=== PATIENT | female | born 1995 | race African-American/Black ===

== ENCOUNTER 2018-01-21 16:08 | Emergency (ER) | payer MEDICARE, OTHER ==
[~2018-01-21] VITALS: Ht 172.7 cm; Wt 68.0 kg
[~2018-01-21 16:08] MED LIST: CA C1TAB75 PO; CEFD300C3 PO; FEXO-14 PO; HYDR-1231 PO; MEDR150D8 IM; [UNRECOGNIZED DRUG - OTHER] IM
--- OUTSIDE RECORDS SUMMARY | 2018-01-21 16:14 | XMS REPORT | Continuity of Care Document ---
Author Author [facility] Organization [facility] Address Unknown Phone Unavailable Allergies Active Description Code Type Severity Reaction Onset Reported/Identified Relationship to Patient Clinical Status Yes No Known Drug Allergies [id number] Drug Allergy Unknown N/A 06/27/2014 Medications There is no data. Problems Date Dx Coded Attending Type Code Diagnosis Diagnosed By 06/27/2014 JONY LOPEZ APRN Ot 465.9 02/25/2015 AJNIS ARIAS Ot 611.71 02/25/2015 JANIS ARIAS Ot 719.46 02/25/2015 JANIS ARIAS Ot V70.3 04/29/2015 SANJUANITA SPARKS MD Ot 780.60 04/29/2015 SANJUANITA SPARKS MD Ot 784.0 Procedures There is no data. Results There is no data. Encounters ACCT No. Visit Date/Time Discharge Status Pt. Type Provider Facility Loc./Unit Complaint [id number] 04/28/2015 23:13:00 04/29/2015 00:10:00 DIS Emergency SANJUANITA SPARKS MD [facility] ER [id number] 02/25/2015 15:36:00 02/25/2015 17:52:00 DIS Emergency SANJUANITA SPARKS MD [facility] ER [id number] 06/27/2014 21:06:00 06/27/2014 22:29:00 DIS Emergency JONY LOPEZ APRN [facility] ER [id number] 06/01/2014 13:33:00 06/01/2014 23:59:59 CLS Outpatient JANIS ARIAS [facility] RAD
--- NOTE | 2018-01-21 16:27 | ED General ---
General Stated Complaint: POISON LEEROY Source of Information: Patient Exam Limitations: No Limitations History of Present Illness Date Seen by Provider: Jan 21, 2018 Time Seen by Provider: 16:22 Initial Comments Patient is deaf and presents to ER by her mother with reports of poison leeroy. This began around the first of the month and at that time she received an injection of a short-acting and long-acting steroid according to the mother. Mother reports the patient has had intense reactions to poison leeroy her whole life and she is very active outside but does not recall any exposure to poison leeroy though it would be difficult to tell this time year without leaves. Additionally, starting yesterday she developed pain in her throat, chills and body aches. The poison leeroy rash never really went away and remains itchy despite Benadryl Timing/Duration: 1-2 Days Allergies and Home Medications Allergies Coded Allergies: No Known Drug Allergies (Unverified , 06/27/14) Home Medications Medroxyprogesterone Acet 150 Mg/Ml Disp.syrin, 150 MG IM UD, (Reported) [Depoproveria] , 1 PKT IM UD, (Reported) Constitutional: see HPI, chills, other (body aches) EENTM: see HPI Respiratory: see HPI, cough Cardiovascular: no symptoms reported Genitourinary: no symptoms reported Musculoskeletal: no symptoms reported Skin: no symptoms reported Psychiatric/Neurological: No Symptoms Reported Hematologic/Lymphatic: No Symptoms Reported Past Lillpim-Znesup-Ojffes Hx Patient Social History Recent Foreign Travel: No Contact w/Someone Who Travel: No Immunizations Up To Date Date of Influenza Vaccine: Aug 31, 2014 HEENT Hearing Impairment: Deaf Physical Exam Vital Signs Capillary Refill : General Appearance: No Apparent Distress, WD/WN Eyes: Bilateral Eye Normal Inspection, Bilateral Eye PERRL, Bilateral Eye EOMI HEENT: PERRL/EOMI, TMs Normal Neck: Full Range of Motion, Normal Inspection Respiratory: No Accessory Muscle Use, No Respiratory Distress Cardiovascular: Regular Rate, Rhythm, Normal Peripheral Pulses Gastrointestinal: Normal Bowel Sounds, Non Tender, Soft Extremity: Normal Capillary Refill, Normal Inspection, No Calf Tenderness Neurologic/Psychiatric: Alert, Oriented x3 Skin: Normal Color, Warm/Dry, Other (she does have clusters of vesicles to the dorsal aspect of the hand, forearms, the lower abdomen and the thighs. Consistent with poison leeroy dermatitis. Her lungs are clear and her throat is without erythema and there is no lymphadenopathy. I suspect that her fever, body aches and cough are separate issue which would be a viral illness) Progress/Results/Core Measures Suspected Sepsis SIRS Temperature: Pulse: Respiratory Rate: Blood Pressure / Mean: Results/Orders Vital Signs/I&O Capillary Refill : Departure Impression Impression: Primary Impression: Viral illness Additional Impression: Poison leeroy Disposition: HOME, SELF-CARE Condition: Stable Departure-Patient Inst. Decision time for Depature: 16:25 Ref[place]: [facility] [place] Primary Care Physician Add. Discharge Instructions: 1. Steroids as directed 2. Tylenol and Motrin for fevers 3. Continue to use the Benadryl this will help with the itching, cough and if she develops any nasal congestion Scripts Prednisone (Prednisone) 5 Mg Tablet 5 MG PO UD Y for RASH, #36 TAB 40 mg today then reduced by one tablet daily until gone Prov: JONY LOPEZ APRN 01/21/18 JONY LOPEZ APRN Jan 21, 2018 16:27
[2018-01-21] MEDS ORDERED: PRED5TAB PO (16:28)
[2018-01-21 16:41] VITALS: BP 125/88
== END 2018-01-21 16:41 | disposition home or self-care (01) ==
LOC: EDUNIT# 16:08 → ER 16:10
DX: B34.9 Viral infection, unspecified (principal); L23.7 Allergic contact dermatitis due to plants, except food; Z79.52 Long term (current) use of systemic steroids
CPT/HCPCS: 99281

== ENCOUNTER 2018-07-09 00:58 | Emergency (ER) | payer MEDICARE ==
[~2018-07-09] VITALS: Ht 172.7 cm; Wt 68.0 kg
[~2018-07-09 00:58] MED LIST changes: +PRED5TAB PO
--- OUTSIDE RECORDS SUMMARY | 2018-07-09 01:07 | XMS REPORT | Continuity of Care Document ---
Author Author [facility] Organization [facility] Address Unknown Phone Unavailable Allergies Active Description Code Type Severity Reaction Onset Reported/Identified Relationship to Patient Clinical Status Yes No Known Drug Allergies [id number] Drug Allergy Unknown N/A 06/27/2014 Medications There is no data. Problems Date Dx Coded Attending Type Code Diagnosis Diagnosed By 06/28/2008 V20.2 ROUTINE OR CHILD HEALTH CHECK 06/28/2008 RUDI VALENTINO DO V20.2 ROUTINE INFANT OR CHILD HEALTH CHECK 06/28/2008 V20.2 ROUTINE INFANT OR CHILD HEALTH CHECK 06/28/2008 V20.2 ROUTINE INFANT OR CHILD HEALTH CHECK 06/28/2008 V20.2 ROUTINE INFANT OR CHILD HEALTH CHECK 06/28/2008 V20.2 ROUTINE OR CHILD HEALTH CHECK 06/28/2008 RUDI VALENTINO DO V20.2 ROUTINE INFANT OR CHILD HEALTH CHECK 06/28/2008 URDI VALENTINO DO V20.2 ROUTINE OR CHILD HEALTH CHECK 06/28/2008 RUDI VALENTINO DO V20.2 ROUTINE OR CHILD HEALTH CHECK 06/28/2008 JANIS ARIAS APRN V20.2 ROUTINE INFANT OR CHILD HEALTH CHECK 06/28/2008 LAUREANO CALLES APRN A V20.2 ROUTINE INFANT OR CHILD HEALTH CHECK 06/28/2008 RUDI VALENTINO DO V20.2 ROUTINE OR CHILD HEALTH CHECK 06/28/2008 RUDI VALENTINO DO V20.2 ROUTINE OR CHILD HEALTH CHECK 06/28/2008 RUDI VALENTINO DO V20.2 ROUTINE INFANT OR CHILD HEALTH CHECK 06/28/2008 LAUREANO CALLES APRN A V20.2 ROUTINE OR CHILD HEALTH CHECK 09/16/2008 V03.89 MENINGOCOCCAL , OTHER SPECIFIED SINGLE BACTERIAL DISEASE 09/16/2008 V05.8 GARDASIL, SHINGLES, OTHER SPECIFIED DISEASE 09/16/2008 RUDI VALENTINO DO V03.89 MENINGOCOCCAL, OTHER SPECIFIED SINGLE BACTERIAL DISEASE 09/16/2008 RUDI VALENTINO DO V05.8 GARDASIL, SHINGLES, OTHER SPECIFIED DISEASE 09/16/2008 V03.89 MENINGOCOCCAL , OTHER SPECIFIED SINGLE BACTERIAL DISEASE 09/16/2008 V05.8 GARDASIL, SHINGLES, OTHER SPECIFIED DISEASE 09/16/2008 V03.89 MENINGOCOCCAL , OTHER SPECIFIED SINGLE BACTERIAL DISEASE 09/16/2008 V05.8 GARDASIL, SHINGLES, OTHER SPECIFIED DISEASE 09/16/2008 V03.89 MENINGOCOCCAL , OTHER SPECIFIED SINGLE BACTERIAL DISEASE 09/16/2008 V05.8 GARDASIL, SHINGLES, OTHER SPECIFIED DISEASE 09/16/2008 V03.89 MENINGOCOCCAL , OTHER SPECIFIED SINGLE BACTERIAL DISEASE 09/16/2008 V05.8 GARDASIL, SHINGLES, OTHER SPECIFIED DISEASE 09/16/2008 RUDI VALENTINO DO V03.89 MENINGOCOCCAL, OTHER SPECIFIED SINGLE BACTERIAL DISEASE 09/16/2008 RUDI VALENTINO DO V05.8 GARDASIL, SHINGLES, OTHER SPECIFIED DISEASE 09/16/2008 RUDI VALENTINO DO V03.89 MENINGOCOCCAL, OTHER SPECIFIED SINGLE BACTERIAL DISEASE 09/16/2008 RUDI VALENTINO DO V05.8 GARDASIL, SHINGLES, OTHER SPECIFIED DISEASE 09/16/2008 RUDI VALENTINO DO K V03.89 MENINGOCOCCAL, OTHER SPECIFIED SINGLE BACTERIAL DISEASE 09/16/2008 JAN VALENTINO DOA K V05.8 GARDASIL, SHINGLES, OTHER SPECIFIED DISEASE 09/16/2008 RAJJERAMYE LITIGATION EXAMINER, JANIS A V03.89 MENINGOCOCCAL, OTHER SPECIFIED SINGLE BACTERIAL DISEASE 09/16/2008 RAJOTTE LITIGATION EXAMINER, JANIS A V05.8 GARDASIL, SHINGLES, OTHER SPECIFIED DISEASE 09/16/2008 STEVAN LITIGATION EXAMINER, LAUREANO A V03.89 MENINGOCOCCAL, OTHER SPECIFIED SINGLE BACTERIAL DISEASE 09/16/2008 STEVAN LITIGATION EXAMINER, LAUREANO A V05.8 GARDASIL, SHINGLES, OTHER SPECIFIED DISEASE 09/16/2008 JAN VALENTINO DOA K V03.89 MENINGOCOCCAL, OTHER SPECIFIED SINGLE BACTERIAL DISEASE 09/16/2008 JAN VALENTINO DOA K V05.8 GARDASIL, SHINGLES, OTHER SPECIFIED DISEASE 09/16/2008 JAN VALENTINO DOA K V03.89 MENINGOCOCCAL, OTHER SPECIFIED SINGLE BACTERIAL DISEASE 09/16/2008 RUDI VALENTINO DO K V05.8 GARDASIL, SHINGLES, OTHER SPECIFIED DISEASE 09/16/2008 RUDI VALENTINO DO K V03.89 MENINGOCOCCAL, OTHER SPECIFIED SINGLE BACTERIAL DISEASE 09/16/2008 VALENTINO DORUDI K V05.8 GARDASIL, SHINGLES, OTHER SPECIFIED DISEASE 09/16/2008 STEVAN APRN, LAUREANO A V03.89 MENINGOCOCCAL, OTHER SPECIFIED SINGLE BACTERIAL DISEASE 09/16/2008 STEVAN LITIGATION EXAMINER, LAUREANO A V05.8 GARDASIL, SHINGLES, OTHER SPECIFIED DISEASE 05/02/2009 V65.5 feared medical condition not demonstrated 05/02/2009 RUDI VALENTINO DO K V65.5 feared medical condition not demonstrated 05/02/2009 V65.5 feared medical condition not demonstrated 05/02/2009 V65.5 feared medical condition not demonstrated 05/02/2009 V65.5 feared medical condition not demonstrated 05/02/2009 V65.5 feared medical condition not demonstrated 05/02/2009 RUDI VALENTINO DO K V65.5 feared medical condition not demonstrated 05/02/2009 RUDI VALENTINO DO K V65.5 feared medical condition not demonstrated 05/02/2009 RUDI VALENTINO DO K V65.5 feared medical condition not demonstrated 05/02/2009 JAINS ARIAS APRN V65.5 feared medical condition not demonstrated 05/02/2009 LAUREANO CALLES APRN A V65.5 feared medical condition not demonstrated 05/02/2009 RUDI VALENTINO DO K V65.5 feared medical condition not demonstrated 05/02/2009 RUDI VALENTINO DO K V65.5 feared medical condition not demonstrated 05/02/2009 RUDI VALENTINO DO K V65.5 feared medical condition not demonstrated 05/02/2009 LAUREANO CALLES APRN A V65.5 feared medical condition not demonstrated 06/28/2009 389.7 DEAF MUTISM 06/28/2009 V05.3 Need For Vaccination Hepatitis A 06/28/2009 RUDI VALENTINO DO 389.7 DEAF MUTISM 06/28/2009 VALENTINO RUDI TABOR K V05.3 Need For Vaccination Hepatitis A 06/28/2009 389.7 DEAF MUTISM 06/28/2009 V05.3 Need For Vaccination Hepatitis A 06/28/2009 389.7 DEAF MUTISM 06/28/2009 V05.3 Need For Vaccination Hepatitis A 06/28/2009 389.7 DEAF MUTISM 06/28/2009 V05.3 Need For Vaccination Hepatitis A 06/28/2009 389.7 DEAF MUTISM 06/28/2009 V05.3 Need For Vaccination Hepatitis A 06/28/2009 VALENTINO DO, RUDI K 389.7 DEAF MUTISM 06/28/2009 VALENTINO DO, RUDI K V05.3 Need For Vaccination Hepatitis A 06/28/2009 VALENTINO DO, RUDI K 389.7 DEAF MUTISM 06/28/2009 VALENTINO DO, RUDI K V05.3 Need For Vaccination Hepatitis A 06/28/2009 VALENTINO DO, RUDI K 389.7 DEAF MUTISM 06/28/2009 VALENTINO DO, RUDI K V05.3 Need For Vaccination Hepatitis A 06/28/2009 RAJOTTE LITIGATION EXAMINER, JANIS A 389.7 DEAF MUTISM 06/28/2009 RAJOTTE LITIGATION EXAMINER, JANIS A V05.3 Need For Vaccination Hepatitis A 06/28/2009 STEVAN LITIGATION EXAMINER, LAUREANO A 389.7 DEAF MUTISM 06/28/2009 STEVAN LITIGATION EXAMINER, LAUREANO A V05.3 Need For Vaccination Hepatitis A 06/28/2009 VALENTINO DO, RUDI K 389.7 DEAF MUTISM 06/28/2009 VALENTINO DO, RUDI K V05.3 Need For Vaccination Hepatitis A 06/28/2009 VALENTINO DO, RUDI K 389.7 DEAF MUTISM 06/28/2009 VALENTINO DO, RUDI K V05.3 Need For Vaccination Hepatitis A 06/28/2009 VALENTINO DO, RUDI K 389.7 DEAF MUTISM 06/28/2009 VALENTINO DO, RUDI K V05.3 Need For Vaccination Hepatitis A 06/28/2009 STEVAN LITIGATION EXAMINER, LAUREANO A 389.7 DEAF MUTISM 06/28/2009 STEVAN LITIGATION EXAMINER, LAUREANO A V05.3 Need For Vaccination Hepatitis A 01/12/2010 V25.40 CONTRACEPTIVE SURVEILLANCE UNSPECIFIED 01/12/2010 CHICHO DO RUDI K V25.40 CONTRACEPTIVE SURVEILLANCE UNSPECIFIED 01/12/2010 V25.40 CONTRACEPTIVE SURVEILLANCE UNSPECIFIED 01/12/2010 V25.40 CONTRACEPTIVE SURVEILLANCE UNSPECIFIED 01/12/2010 V25.40 CONTRACEPTIVE SURVEILLANCE UNSPECIFIED 01/12/2010 V25.40 CONTRACEPTIVE SURVEILLANCE UNSPECIFIED 01/12/2010 VALENTINO DO, RUDI K V25.40 CONTRACEPTIVE SURVEILLANCE UNSPECIFIED 01/12/2010 VALENTINO DO, RUDI K V25.40 CONTRACEPTIVE SURVEILLANCE UNSPECIFIED 01/12/2010 VALENTINO DO, RUDI K V25.40 CONTRACEPTIVE SURVEILLANCE UNSPECIFIED 01/12/2010 RAJOTTE LITIGATION EXAMINER JANIS A V25.40 CONTRACEPTIVE SURVEILLANCE UNSPECIFIED 01/12/2010 STEVAN LITIGATION EXAMINER, LAUREANO A V25.40 CONTRACEPTIVE SURVEILLANCE UNSPECIFIED 01/12/2010 VALENTINO DO, RUDI K V25.40 CONTRACEPTIVE SURVEILLANCE UNSPECIFIED 01/12/2010 VALENTINO DO, RUDI K V25.40 CONTRACEPTIVE SURVEILLANCE UNSPECIFIED 01/12/2010 VALENTINO DO, RUDI K V25.40 CONTRACEPTIVE SURVEILLANCE UNSPECIFIED 01/12/2010 STEVAN LITIGATION EXAMINER, LAUREANO A V25.40 CONTRACEPTIVE SURVEILLANCE UNSPECIFIED 04/07/2010 V25.49 SURVEILLANCE OF OTHER CONTRACEPTIVE METHOD 04/07/2010 VALENTINO DO, RUDI K V25.49 SURVEILLANCE OF OTHER CONTRACEPTIVE METHOD 04/07/2010 V25.49 SURVEILLANCE OF OTHER CONTRACEPTIVE METHOD 04/07/2010 V25.49 SURVEILLANCE OF OTHER CONTRACEPTIVE METHOD 04/07/2010 V25.49 SURVEILLANCE OF OTHER CONTRACEPTIVE METHOD 04/07/2010 V25.49 SURVEILLANCE OF OTHER CONTRACEPTIVE METHOD 04/07/2010 VALENTINO DO, RUDI K V25.49 SURVEILLANCE OF OTHER CONTRACEPTIVE METHOD 04/07/2010 VALENTINO DO, RUDI K V25.49 SURVEILLANCE OF OTHER CONTRACEPTIVE METHOD 04/07/2010 VALENTINO DO, RUDI K V25.49 SURVEILLANCE OF OTHER CONTRACEPTIVE METHOD 04/07/2010 RAJOTTE LITIGATION EXAMINER JANIS A V25.49 SURVEILLANCE OF OTHER CONTRACEPTIVE METHOD 04/07/2010 STEVAN LITIGATION EXAMINER, LAUREANO A V25.49 SURVEILLANCE OF OTHER CONTRACEPTIVE METHOD 04/07/2010 VALENTINO DO, RUDI K V25.49 SURVEILLANCE OF OTHER CONTRACEPTIVE METHOD 04/07/2010 VALENTINO DO, RUDI K V25.49 SURVEILLANCE OF OTHER CONTRACEPTIVE METHOD 04/07/2010 VALENTINO DO, RUDI K V25.49 SURVEILLANCE OF OTHER CONTRACEPTIVE METHOD 04/07/2010 STEVAN LITIGATION EXAMINER, LAUREANO A V25.49 SURVEILLANCE OF OTHER CONTRACEPTIVE METHOD 06/14/2010 692.6 POISON LEEROY 06/14/2010 VALENTINO DO, RUDI K 692.6 POISON LEEROY 06/14/2010 692.6 POISON LEEROY 06/14/2010 692.6 POISON LEEROY 06/14/2010 692.6 POISON LEEROY 06/14/2010 692.6 POISON LEEROY 06/14/2010 VALENTINO DO, RUDI K 692.6 POISON LEEROY 06/14/2010 VALENTINO DO, RUDI K 692.6 POISON LEEROY 06/14/2010 VALENTINO DO, RUDI K 692.6 POISON LEEROY 06/14/2010 RAJOTTE LITIGATION EXAMINER, JANIS A 692.6 POISON LEEROY 06/14/2010 STEVAN LITIGATION EXAMINER, LAUREANO A 692.6 POISON LEEROY 06/14/2010 VALENTINO DO, RUID K 692.6 POISON LEEROY 06/14/2010 VALENTINO DO, RUDI K 692.6 POISON LEEROY 06/14/2010 VALENTINO DO, RUDI K 692.6 POISON LEEROY 06/14/2010 STEVAN LITIGATION EXAMINER, LAUREANO A 692.6 POISON LEEROY 07/02/2011 389.9 UNSPECIFIED HEARING LOSS 07/02/2011 VALENTINO DO, RUDI K 389.9 UNSPECIFIED HEARING LOSS 07/02/2011 389.9 UNSPECIFIED HEARING LOSS 07/02/2011 389.9 UNSPECIFIED HEARING LOSS 07/02/2011 389.9 UNSPECIFIED HEARING LOSS 07/02/2011 389.9 UNSPECIFIED HEARING LOSS 07/02/2011 VALENTINO DO, RUDI K 389.9 UNSPECIFIED HEARING LOSS 07/02/2011 VALENTINO DO, RUDI K 389.9 UNSPECIFIED HEARING LOSS 07/02/2011 VALENTINO DO, RUDI K 389.9 UNSPECIFIED HEARING LOSS 07/02/2011 JUANA LITIGATION EXAMINER, JANIS A 389.9 UNSPECIFIED HEARING LOSS 07/02/2011 STEVAN LITIGATION EXAMINER, LAUREANO A 389.9 UNSPECIFIED HEARING LOSS 07/02/2011 VALENTINO DO, RUDI K 389.9 UNSPECIFIED HEARING LOSS 07/02/2011 VALENTINO DO, RUDI K 389.9 UNSPECIFIED HEARING LOSS 07/02/2011 VALENTINO DO, RUDI K 389.9 UNSPECIFIED HEARING LOSS 07/02/2011 STEVAN LITIGATION EXAMINER, LAUREANO A 389.9 UNSPECIFIED HEARING LOSS 09/13/2011 V72.41 TEST NEGATIVE RESULT 09/13/2011 VALENTINO DO, RUDI K V72.41 TEST NEGATIVE RESULT 09/13/2011 V72.41 TEST NEGATIVE RESULT 09/13/2011 V72.41 TEST NEGATIVE RESULT 09/13/2011 V72.41 TEST NEGATIVE RESULT 09/13/2011 V72.41 TEST NEGATIVE RESULT 09/13/2011 VALENTINO DO, RUDI K V72.41 TEST NEGATIVE RESULT 09/13/2011 VALENTINO DO, RUDI K V72.41 TEST NEGATIVE RESULT 09/13/2011 VALENTINO DO, RUDI K V72.41 TEST NEGATIVE RESULT 09/13/2011 ESTHERE LITIGATION EXAMINER, JANIS A V72.41 TEST NEGATIVE RESULT 09/13/2011 STEVANSpike FISH LAUREANO A V72.41 TEST NEGATIVE RESULT 09/13/2011 VALENTINO DO, RUDI K V72.41 TEST NEGATIVE RESULT 09/13/2011 VALENTINO DO, RUDI K V72.41 TEST NEGATIVE RESULT 09/13/2011 VALENTINO DO, RUDI K V72.41 TEST NEGATIVE RESULT 09/13/2011 STEVAN FISH, LAUREANO A V72.41 TEST NEGATIVE RESULT 11/20/2011 110.4 TINEA PEDIS 11/20/2011 VALENTINO DO, RUDI K 110.4 TINEA PEDIS 11/20/2011 110.4 TINEA PEDIS 11/20/2011 110.4 TINEA PEDIS 11/20/2011 110.4 TINEA PEDIS 11/20/2011 110.4 TINEA PEDIS 11/20/2011 VALENTINO DO, RUDI K 110.4 TINEA PEDIS 11/20/2011 VALENTINO DO, RUDI K 110.4 TINEA PEDIS 11/20/2011 VALENTINO DO, RUDI K 110.4 TINEA PEDIS 11/20/2011 LEANNOTTE LITIGATION EXAMINER, JANIS A 110.4 TINEA PEDIS 11/20/2011 STEVAN LITIGATION EXAMINER, LAUREANO A 110.4 TINEA PEDIS 11/20/2011 VALENTINO DO, RUDI K 110.4 TINEA PEDIS 11/20/2011 VALENTINO DO, RUDI K 110.4 TINEA PEDIS 11/20/2011 VALENTINO DO, RUDI K 110.4 TINEA PEDIS 11/20/2011 STEVAN FISH LAUREANO A 110.4 TINEA PEDIS 05/07/2012 V25.9 CONTRACEPTION MANAGEMENT 05/07/2012 VALENTINO DO, RUDI K V25.9 CONTRACEPTION MANAGEMENT 05/07/2012 V25.9 CONTRACEPTION MANAGEMENT 05/07/2012 V25.9 CONTRACEPTION MANAGEMENT 05/07/2012 V25.9 CONTRACEPTION MANAGEMENT 05/07/2012 V25.9 CONTRACEPTION MANAGEMENT 05/07/2012 VALENTINO DOJANA K V25.9 CONTRACEPTION MANAGEMENT 05/07/2012 VALENTINO DO, RUDI K V25.9 CONTRACEPTION MANAGEMENT 05/07/2012 VALENTINO DO, RUDI K V25.9 CONTRACEPTION MANAGEMENT 05/07/2012 JANIS ARIAS APRN A V25.9 CONTRACEPTION MANAGEMENT 05/07/2012 BRIDGER CALLES APRNIDI A V25.9 CONTRACEPTION MANAGEMENT 05/07/2012 VALENTINO DOJANA K V25.9 CONTRACEPTION MANAGEMENT 05/07/2012 VALENTINO DO, RUDI K V25.9 CONTRACEPTION MANAGEMENT 05/07/2012 VALENTINO DOJANA K V25.9 CONTRACEPTION MANAGEMENT 05/07/2012 BRIDGER CALLES APRNIDI A V25.9 CONTRACEPTION MANAGEMENT 12/03/2012 VALENTINO DOJANA K V25.09 CONTRACEPTIVE COUNSELING - GENERAL 12/03/2012 V25.09 CONTRACEPTIVE COUNSELING - GENERAL 12/03/2012 V25.09 CONTRACEPTIVE COUNSELING - GENERAL 12/03/2012 V25.09 CONTRACEPTIVE COUNSELING - GENERAL 12/03/2012 V25.09 CONTRACEPTIVE COUNSELING - GENERAL 12/03/2012 VALENTINO DOJANA K V25.09 CONTRACEPTIVE COUNSELING - GENERAL 12/03/2012 VALENTINO DOJANA K V25.09 CONTRACEPTIVE COUNSELING - GENERAL 12/03/2012 VALENTINO DOJANA K V25.09 CONTRACEPTIVE COUNSELING - GENERAL 12/03/2012 JANIS ARIAS APRN A V25.09 CONTRACEPTIVE COUNSELING - GENERAL 12/03/2012 BRIDGER CALLES APRNIDI A V25.09 CONTRACEPTIVE COUNSELING - GENERAL 12/03/2012 VALENTINO DOJANA K V25.09 CONTRACEPTIVE COUNSELING - GENERAL 12/03/2012 VALENTINO DO RUDI K V25.09 CONTRACEPTIVE COUNSELING - GENERAL 12/03/2012 VALENTION DO RUDI K V25.09 CONTRACEPTIVE COUNSELING - GENERAL 12/03/2012 BRIDGER CALLES APRNIDI A V25.09 CONTRACEPTIVE COUNSELING - GENERAL 06/15/2013 719.46 PAIN IN JOINT INVOLVING LOWER LEG 06/15/2013 719.46 PAIN IN JOINT INVOLVING LOWER LEG 06/15/2013 VALENTINO DO, RUDI K 719.46 PAIN IN JOINT INVOLVING LOWER LEG 06/15/2013 VALENTINO DO, RUDI K 719.46 PAIN IN JOINT INVOLVING LOWER LEG 06/15/2013 VALENTINO DO, RUDI K 719.46 PAIN IN JOINT INVOLVING LOWER LEG 06/15/2013 KIZZY ARIAS APRNYL A 719.46 PAIN IN JOINT INVOLVING LOWER LEG 06/15/2013 STEVAN FISH LAUREANO A 719.46 PAIN IN JOINT INVOLVING LOWER LEG 06/15/2013 VALENTINO DO, RUDI K 719.46 PAIN IN JOINT INVOLVING LOWER LEG 06/15/2013 VALENTINO DO, RUDI K 719.46 PAIN IN JOINT INVOLVING LOWER LEG 06/15/2013 VALENTINO DO, RUDI K 719.46 PAIN IN JOINT INVOLVING LOWER LEG 06/15/2013 LAUREANO CALLES APRN A 719.46 PAIN IN JOINT INVOLVING LOWER LEG 06/24/2013 717.7 CHONDROMALACIA OF PATELLA 06/24/2013 VALENTINO DO, RUDI K 717.7 CHONDROMALACIA OF [place]LLA 06/24/2013 VALENTINO DO, RUDI K 717.7 CHONDROMALACIA OF [place]LL[place] 06/24/2013 VALENTINO DO, RUDI K 717.7 CHONDROMALACIA OF [place] 06/24/2013 KIZZY ARIAS APRNYL A 717.7 CHONDROMALACIA OF [place] 06/24/2013 STEVANBRIDGER EDUARDO APRNIDI A 717.7 CHONDROMALACIA OF [place] 06/24/2013 VALENTINO DO, RUDI K 717.7 CHONDROMALACIA OF [place] 06/24/2013 VALENTINO DO, RUDI K 717.7 CHONDROMALACIA OF [place] 06/24/2013 VALENTINO DO, RUDI K 717.7 CHONDROMALACIA OF [place] 06/24/2013 STEVANALESHA JOHNN, LAUREANO A 717.7 CHONDROMALACIA OF [place]LL[place] 10/01/2013 VALENTINO DO, RUDI K V04.81 FLU SHOT 10/01/2013 VALENTINO DO, RUDI K V04.81 FLU SHOT 10/01/2013 VALENTINO DO, RUDI K V04.81 FLU SHOT 10/01/2013 JANIS ARIAS APRN A V04.81 FLU SHOT 10/01/2013 STEVAN FISH LAUREANO A V04.81 FLU SHOT 10/01/2013 VALENTINO DO, RUDI K V04.81 FLU SHOT 10/01/2013 VALENTINO DO, RUDI K V04.81 FLU SHOT 10/01/2013 VALENTINO DO, RUDI K V04.81 FLU SHOT 10/01/2013 STEVAN FISH, LAUREANO A V04.81 FLU SHOT 04/26/2014 JUANA LITIGATION EXAMINER, JANIS A 611.71 BREAST PAIN 04/26/2014 JUANA FISH, JANIS A V70.3 SPORTS PHYSICAL 04/26/2014 STEVAN LITIGATION EXAMINER, LAUREANO A 611.71 BREAST PAIN 04/26/2014 STEVAN LITIGATION EXAMINER, LAUREANO A V70.3 SPORTS PHYSICAL 04/26/2014 VALENTINO DO, RUDI K 611.71 BREAST PAIN 04/26/2014 VALENTINO DO, RUDI K V70.3 SPORTS PHYSICAL 04/26/2014 VALENTINO DO, RUDI K 611.71 BREAST PAIN 04/26/2014 VALENTINO DO, RUDI K V70.3 SPORTS PHYSICAL 04/26/2014 VALENTINO DO, RUDI K 611.71 BREAST PAIN 04/26/2014 VALENTINO DO, RUDI K V70.3 SPORTS PHYSICAL 04/26/2014 STEVAN LITIGATION EXAMINER, LAUREANO A 611.71 BREAST PAIN 04/26/2014 STEVANALESHA JOHNN, LAUREANO A V70.3 SPORTS PHYSICAL 06/27/2014 JONY LOPEZ LITIGATION EXAMINER Ot 465.9 ACUTE URI NOS 02/25/2015 CLARE HOLDEN, SANJUANITA Allen Ot 922.8 MULTIPLE CONTUSION TRUNK 02/25/2015 SANJUANITA SPARKS MD Ot 959.19 OTH INJURY OF OTHER SITES OF TRUNK 02/25/2015 SANJUANITA SPARKS MD Ot E000.8 OTHER EXTERNAL CAUSE STATUS 02/25/2015 SANJUANITA PSARKS MD Ot E006.1 ACTIVITIES INVOLVING HORSEBACK RIDING 02/25/2015 SANJUANITA SPARKS MD Ot 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 02/25/2015 JANIS ARIAS GSE MECHANIC Ot 611.71 02/25/2015 JANIS ARIAS GSE MECHANIC Ot 719.46 02/25/2015 JANIS ARIAS GSE MECHANIC Ot V70.3 04/29/2015 CLARE HOLDEN, SANJUANITA Allen Ot 780.60 FEVER, UNSPECIFIED 04/29/2015 CLARE HOLDEN, SANJUANITA Allen Ot 784.0 HEADACHE 01/21/2018 JONY LOPEZ APRN Ot B34.9 VIRAL INFECTION, UNSPECIFIED 01/21/2018 JONY LOPEZ APRN Ot L23.7 ALLERGIC CONTACT DERMATITIS DUE TO PLANT 01/21/2018 JONY LOPEZ APRN Ot Z79.52 FCI (CURRENT) USE OF SYSTEMIC STER 01/22/2018 JUANAJANIS Rema GSE MECHANIC Ot 611.71 MASTODYNIA 01/22/2018 JANIS ARIAS GSE MECHANIC Ot 719.46 JOINT PAIN-L/LEG 01/22/2018 JANIS ARIAS GSE MECHANIC Ot V70.3 MED EXAM NEC-ADMIN PURP 01/23/2018 JONY LOPEZ APRN Ot B34.9 VIRAL INFECTION, UNSPECIFIED 01/23/2018 JONY LOPEZ APRN Ot L23.7 ALLERGIC CONTACT DERMATITIS DUE TO PLANT 01/23/2018 JONY LOPEZ APRN Ot Z79.52 [facility]CI (CURRENT) USE OF SYSTEMIC STER Procedures Code Description [place] [address] THERAPUTIC INJ SQ/IM 10/31/2012 J1055 DEPO-PROVERA INJ 150 MG 10/31/2012 57015 THERAPUTIC INJ SQ/IM 10/31/2012 J1055 DEPO-PROVERA INJ 150 MG 10/31/2012 87220 URINE TEST (IN- HOUSE) 10/31/2012 78400 URINE TEST (IN- HOUSE) 10/31/2012 09255 THERAPUTIC INJ SQ/IM 01/23/2013 J1055 DEPO-PROVERA INJ 150 MG 01/23/2013 91226 THERAPUTIC INJ SQ/IM 01/23/2013 J1055 DEPO-PROVERA INJ 150 MG 01/23/2013 08720 URINE TEST (IN- HOUSE) 01/23/2013 22998 URINE TEST (IN- HOUSE) 01/23/2013 89666 THERAPUTIC INJ SQ/IM 04/10/2013 J1050 DEPO PROVERA 04/10/2013 36143 URINE TEST (IN- HOUSE) 04/10/2013 67243 PURE TONE HEARING TEST AIR 06/17/2013 Orthopedi Sg [place] 07/08/2013 49540 URINE TEST (IN- HOUSE) 10/01/2013 86974 THERAPUTIC INJ SQ/IM 10/01/2013 J1050 DEPO PROVERA 10/01/2013 J1050 DEPO PROVERA 01/22/2014 70753 TEST, URINE (IN- HOUSE) 01/22/2014 18773 THERAPUTIC INJ SQ/IM 01/22/2014 70226 THERAPUTIC INJ SQ/IM 04/21/2014 J1050 DEPO PROVERA 04/21/2014 02185 TEST, URINE (IN- HOUSE) 04/21/2014 25882 MRI EXTREMITY JOINT, LOWER RIGHT, W/O CONTRAST 04/21/2014 J1050 DEPO PROVERA 07/07/2014 31924 THERAPUTIC INJ SQ/IM 07/07/2014 47947 TEST, URINE (IN- HOUSE) 07/07/2014 J1050 DEPO PROVERA 10/07/2014 57962 TEST, URINE (IN- HOUSE) 10/07/2014 52918 THERAPUTIC INJ SQ/IM 10/07/2014 Results Test Result Range CULTURE, GENITAL - 12/29/17 13:50 CULTURE, GENITAL SEE NOTE NRG SUREPATH PAP RFX HPV mRNA E6/E7 - 12/29/17 13:50 CLINICAL INFORMATION: NRG LMP: 12/05/17 NRG PREV. PAP: NONE NRG PREV. BX: NONE NRG SOURCE: NRG STATEMENT OF ADEQUACY: NRG INTERPRETATION/RESULT: NRG FLEA MARKET SELLER: NRG Encounters ACCT No. Visit Date/Time Discharge Status Pt. Type Provider Facility Loc./Unit Complaint [id number] 01/21/2018 16:10:00 01/21/2018 16:41:00 DIS Emergency JONY LOPEZ APRN [facility] ER POISON LEEROY [id number] 04/28/2015 23:13:00 04/29/2015 00:10:00 DIS Emergency SANJUANITA SPARKS MD [facility] ER FEVER [id number] 02/25/2015 15:36:00 02/25/2015 17:52:00 DIS Emergency SANJUANITA SPARKS MD [facility] ER FALL [id number] 06/27/2014 21:06:00 06/27/2014 22:29:00 DIS Emergency LOPEZJONY APRN [facility] ER FEVER; COUGH [id number] 06/01/2014 13:33:00 06/01/2014 23:59:59 CLS Outpatient JANIS ARIAS [facility] RAD KNEE PAIN,INJURY FROM FALL [id number] 05/26/2018 08:30:00 05/26/2018 23:59:59 CLS Outpatient MATTIE GONZALEZ [facility] [id number] 12/29/2017 12:00:00 Document Registration [id number] 11/07/2017 08:00:00 11/07/2017 23:59:59 CLS Outpatient MATTIE LAC [facility] D[facility] [id number] 02/16/2015 09:45:00 02/16/2015 23:59:59 CLS Outpatient LAUREANO CALLES APRN [id number] 10/07/2014 11:03:00 10/07/2014 23:59:59 CLS Outpatient RUDI VALENTNIO DO [id number] 07/14/2014 00:00:00 07/14/2014 23:59:59 CLS Outpatient RUDI VALENTINO DO [id number] 07/07/2014 13:54:00 07/07/2014 23:59:59 CLS Outpatient RUDI VALENTINO DO [id number] 04/26/2014 10:30:00 04/26/2014 23:59:59 CLS Outpatient JANIS ARIAS APRN [id number] 04/21/2014 15:54:00 04/21/2014 23:59:59 CLS Outpatient LAUREANO CALLES APRN [id number] 01/22/2014 10:45:00 01/22/2014 23:59:59 CLS Outpatient RUDI VALENTINO DO [id number] 01/22/2014 10:45:00 01/22/2014 23:59:59 CLS Outpatient RUDI VALENTINO DO [id number] 10/01/2013 09:45:00 10/01/2013 23:59:59 CLS Outpatient RUDI VALENTINO DO [id number] 01/23/2013 09:50:00 01/23/2013 23:59:59 CLS Outpatient [id number] 12/03/2012 13:59:00 12/03/2012 23:59:59 [place] [id number] 10/31/2012 09:58:00 10/31/2012 23:59:59 CLS Outpatient [id number] 06/29/2013 12:05:00 Document Registration [id number] 06/15/2013 14:16:00 Document Registration [id number] 04/10/2013 09:40:00 Document Registration
[2018-07-09] MEDS ORDERED: ACETAMINOPHEN 500 MG TAB (TYLENOL) PO ONE (01:15)
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
[2018-07-09 02:15] VITALS: BP 138/69
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
== END 2018-07-09 02:15 | disposition home or self-care (01) ==
LOC: EDUNIT# 00:58 → ER 01:03
DX: S00.03XA Contusion of scalp, initial encounter (principal); R40.2142 Coma scale, eyes open, spontaneous, at arrival to emergency department; R40.2252 Coma scale, best verbal response, oriented, at arrival to emergency department; R40.2362 Coma scale, best motor response, obeys commands, at arrival to emergency department; Z79.52 Long term (current) use of systemic steroids; Y04.8XXA Assault by other bodily force, initial encounter
CPT/HCPCS: 73130; 84703

== ENCOUNTER 2020-06-03 22:26 | Emergency (ER) | payer MEDICARE ==
[~2020-06-03] VITALS: Ht 172 cm; Wt 61.2 kg
[2020-06-03 22:28] VITALS: BP 135/85
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
== END 2020-06-03 23:25 | disposition home or self-care (01) ==
LOC: EDUNIT# 22:26 → ER 22:31
DX: S80.02XA Contusion of left knee, initial encounter (principal); M54.2 Cervicalgia; H91.90 Unspecified hearing loss, unspecified ear; Z87.820 Personal history of traumatic brain injury; Z79.52 Long term (current) use of systemic steroids; Z77.22 Contact with and (suspected) exposure to environmental tobacco smoke (acute) (chronic); Y08.89XA Assault by other specified means, initial encounter
CPT/HCPCS: 73562

== ENCOUNTER 2021-02-19 19:54 | Emergency (ER) | payer MEDICARE, MEDICAID ==
[~2021-02-19] VITALS: Ht 165.5 cm; Wt 61.2 kg
[2021-02-19 20:02] VITALS: BP 151/103
[2021-02-19] MEDS ORDERED: AZIT250T12 PO (20:14)
[2021-02-19] MEDS ORDERED: PRD20T PO (20:14)
--- NOTE | 2021-02-19 20:14 | ED EENT ---
History of Present Illness General Stated Complaint: BILAT EAR PAIN / JAW PAIN Source: patient Exam Limitations: no limitations History of Present Illness Date Seen by Provider: Feb 19, 2021 Time Seen by Provider: 20:09 Initial Comments Rhinorrhea, bilateral lateral neck and jaw and ear pain for 2 days. Timing/Duration: abrupt Severity: moderate Associated Symptoms: cough Allergies and Home Medications Allergies Coded Allergies: No Known Drug Allergies (Unverified , 06/27/14) Home Medications Medroxyprogesterone Acet 150 Mg/Ml Disp.syrin, 150 MG IM UD, (Reported) Prednisone 5 Mg Tablet, 5 MG PO UD PRN for RASH 40 mg today then reduced by one tablet daily until gone Prescribed by: JONY LOPEZ on 01/21/18 1628 [Depoproveria] , 1 PKT IM UD, (Reported) Patient Home Medication List Home Medication List Reviewed: Yes Review of Systems Review of Systems Constitutional: see HPI Eyes: No Symptoms Reported Ears: See HPI, Pain Nose: no symptoms reported Mouth: no symptoms reported Throat: no symptoms reported Respiratory: no symptoms reported Cardiovascular: no symptoms reported Musculoskeletal: no symptoms reported Skin: no symptoms reported Neurological: No Symptoms Reported Hematologic/Lymphatic: No Symptoms Reported Past Enlsrlh-Xwgjsn-Aoawhb Hx Patient Social History Type Used: Cigarettes 2nd Hand Smoke Exposure: Yes Recent Hopitalizations: No Immunizations Up To Date Date of Influenza Vaccine: Aug 31, 2014 Past Medical History Surgeries: No Respiratory: No Cardiac: No Neurological: No Genitourinary: No Gastrointestinal: No Musculoskeletal: No Endocrine: No HEENT: No Hearing Impairment: Deaf Cancer: No Psychosocial: No Integumentary: No Blood Disorders: No Physical Exam Height, Weight, BMI Height: 5'8.00" Weight: 150lbs. oz. 68.560044rc; 20.00 BMI Method:Stated General Appearance: WD/WN, no apparent distress Eyes: bilateral eye normal inspection, bilateral eye PERRL, bilateral eye EOMI Ears: right ear TM dull; left ear TM normal; bilateral ear auricle normal, bilateral ear canal normal Neck: non-tender, full range of motion, lymphadenopathy (R), lymphadenopathy (L) Gastrointestinal: normal bowel sounds, soft Neurologic/Psychiatric: alert, normal mood/affect, oriented x 3 Skin: normal color, warm/dry Departure Impression Primary Impression: URI (upper respiratory infection) Disposition: 01 HOME, SELF-CARE Condition: Stable Departure-Patient Inst. Decision time for Depature: 20:12 Referrals: [facility] (PCP/Family) Primary Care Physician Patient Instructions: Upper Respiratory Infection ED Add. Discharge Instructions: 1. Tylenol and ibuprofen for pain control. Medication as directed. Scripts Azithromycin (Azithromycin) 250 Mg Tablet 250 MG PO DAILY, #4 TAB 0 Refills Prov: JONY LOPEZ APRN 02/19/21 Prednisone (Prednisone) 20 Mg Tab 40 MG PO DAILY, #2 TAB 0 Refills Prov: JONY LOPEZ APRN 02/19/21 JONY LOPEZ APRN Feb 19, 2021 20:14
[2021-02-19] MEDS ORDERED: AZITHROMYCIN 250 MG TAB (ZITHROMAX) PO SCH (20:15)
[2021-02-19] MEDS ORDERED: IBUPROFEN 800 MG (MOTRIN) TAB PO ONE (20:15)
== END 2021-02-19 20:27 | disposition home or self-care (01) ==
LOC: EDUNIT# 19:54 → ER 19:57
DX: J06.9 Acute upper respiratory infection, unspecified (principal); Z77.22 Contact with and (suspected) exposure to environmental tobacco smoke (acute) (chronic); Z79.52 Long term (current) use of systemic steroids
CPT/HCPCS: 99283

== ENCOUNTER 2021-07-11 00:19 | Emergency (ER) | payer MEDICARE, MEDICAID ==
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
[2021-07-11] MEDS ORDERED: LIDOCAINE 1% INJ 20 ML 20 ML VIAL INJ ONE (01:00)
[2021-07-11] MEDS ORDERED: IBUPROFEN 600 MG (MOTRIN) TAB PO ONE (01:00)
[2021-07-11] MEDS ORDERED: metroNIDAZOLE 500 MG (FLAGYL) TAB PO ONE (01:00)
[2021-07-11] MEDS ORDERED: AZITHROMYCIN 250 MG TAB (ZITHROMAX) PO SCH (01:00)
[2021-07-11] MEDS ORDERED: cefTRIAXone 250 MG/2.5 ML ML IM ONE (01:00)
[2021-07-11] MEDS: ONDANSETRON 4 MG (ZOFRAN) ORAL DISSOLVE TAB PO STA ×2 (01:05→01:34)
[2021-07-11] MEDS ORDERED: PROMETHAZINE INJ 25 MG/ML (PHENERGAN) AMP IM ONE (01:45)
[2021-07-11 02:47] VITALS: BP 135/85
== END 2021-07-11 02:50 | disposition home or self-care (01) ==
LOC: EDUNIT# 00:19 → ER 00:22
DX: T74.21XA Adult sexual abuse, confirmed, initial encounter (principal); S80.11XA Contusion of right lower leg, initial encounter; S80.12XA Contusion of left lower leg, initial encounter; H91.90 Unspecified hearing loss, unspecified ear; Y07.9 Unspecified perpetrator of maltreatment and neglect
CPT/HCPCS: 99284

== ENCOUNTER → 2021-07-11 | Outpatient (CLI) | payer SELFPAY ==
[~2021-07-11] MED LIST changes: +AZIT250T12 PO; +PRD20T PO
== END ==
LOC: FNS 15:16
PROVIDERS: ATTEND Emergency Medicine
DX: Z02.89 Encounter for other administrative examinations (principal)

== ENCOUNTER 2022-06-02 19:45 | Emergency (ER) | payer MEDICARE ==
[~2022-06-02] VITALS: Ht 170 cm; Wt 65.7 kg
--- NOTE | 2022-06-02 20:13 | ED Upper Extremity ---
General Stated Complaint: L ARM PAIN Source: patient Exam Limitations: no limitations, physical impairment History of Present Illness Date Seen by Provider: Jun 02, 2022 Time Seen by Provider: 20:11 Initial Comments Patient is a 26-year-old female who presents ED with left wrist pain. Physical impairment limiting exam and history. Patient able to write on a piece of paper to communicate. She states that she fell today landing on her left wrist. She reports pain and swelling to the wrist with pain with movement. Denies taking thing for pain. On exam no obvious bone deformity. Patient has appropriate ra nge of motion Allergies and Home Medications Allergies Coded Allergies: No Known Drug Allergies (Unverified , 06/27/14) Patient Home Medication List Home Medication List Reviewed: Yes Azithromycin (Azithromycin) 250 Mg Tablet, 250 MG PO DAILY Prescribed by: JONY LOPEZ on 02/19/212013 Ibuprofen (Ibuprofen) 600 Mg Tablet, 600 MG PO Q6H Prescribed by: KISHA WALTON on 06/02/222041 Medroxyprogesterone Acet (Depo-Provera) 150 Mg/Ml Disp.syrin, 150 MG IM UD, (Reported) Entered as Reported by: FIFI HORN on 04/28/15 2313 Prednisone (Prednisone) 5 Mg Tablet, 5 MG PO UD PRN for RASH Prescribed by: JONY LOPEZ on 01/21/18 1628 Prednisone (Prednisone) 20 Mg Tab, 40 MG PO DAILY Prescribed by: JONY LOPEZ on 02/19/212013 [Depoproveria] , 1 PKT IM UD, (Reported) Entered as Reported by: LADONNA NAVARRO on 06/27/142131 Review of Systems Constitutional: No chills, No diaphoresis, No malaise EENTM: No ear pain, No blurred vision, No double vision Respiratory: No cough, No dyspnea on exertion Cardiovascular: No chest pain, No palpitations Gastrointestinal: No abdominal pain, No diarrhea, No nausea, No vomiting Musculoskeletal: joint pain, muscle pain Skin: No change in color, No change in hair/nails All Other Systems Reviewed Negative Unless Noted: Yes Past Oozfmvv-Nwqhhj-Vctudt Hx Past Medical History Surgeries: No Respiratory: No Cardiac: No Neurological: No Genitourinary: No Gastrointestinal: No Musculoskeletal: No Endocrine: No HEENT: No Hearing Impairment: Deaf Cancer: No Psychosocial: No Integumentary: No Blood Disorders: No Physical Exam Vital Signs Vital Signs - First Documented 06/02/22 20:05 Temp 36.6 Pulse 93 Resp 16 B/P (MAP) 111/70 (84) Pulse Ox 99 O2 Delivery Room Air Capillary Refill : Height, Weight, BMI Height: 5'8.00" Weight: 150lbs. oz. 68.684014ks; 22.00 BMI Method:Stated General Appearance: WD/WN, no apparent distress HEENT: PERRL/EOMI, normal ENT inspection, TMs normal, pharynx normal Neck: non-tender, full range of motion, supple, normal inspection Cardiovascular: regular rate, rhythm, no edema, no gallop, no JVD Respiratory: chest non-tender, lungs clear, normal breath sounds, no respiratory distress, no accessory muscle use Gastrointestinal: normal bowel sounds, non tender, soft, no organomegaly Back: normal inspection, no CVA tenderness, no vertebral tenderness Elbow/Forearm: normal ROM Wrist: Yes normal ROM, Yes pain, Yes soft tissue tenderness (Left distal radius and ulna.) Hand: normal inspection, non-tender, no evidence of injury Neurologic/Psychiatric: life science taxonomist II-XII nml as tested, no motor/sensory deficits, alert, normal mood/affect, oriented x 3 Progress/Results/Core Measures Results/Orders My Orders Orders - ERIC CHRISTIAN Wrist, Left, 3 Views Or More (06/02/22 20:10) Ibuprofen Tablet (Motrin Tablet) (06/02/22 20:15) Medications Given in ED Current Medications Medications Dose Ordered Sig/Hetal Route Start Time Stop Time Status Last Admin Dose Admin Ibuprofen 600 mg ONCE ONCE PO 06/02/22 20:15 06/02/22 20:16 DC 06/02/22 20:19 600 MG Vital Signs/I&O 06/02/22 06/02/22 20:05 21:00 Temp 36.6 36.2 Pulse 93 89 Resp 16 16 B/P (MAP) 111/70 (84) 105/69 Pulse Ox 99 100 O2 Delivery Room Air Room Air Departure Communication (PCP) X-ray was negative for fracture. Patient was placed in a Velcro splint. Orthopedic follow-up in 7 to 10 days. Will discharge with anti-inflammatories. Ice 3-4 times a day. Return precaution were discussed with Impression Primary Impression: Wrist sprain Disposition: HOME, SELF-CARE Condition: Stable Departure-Patient Inst. Decision time for Depature: 20:42 [facility]errals: [facility] (PCP/Family) Primary Care Physician MARTINE RUIZ MD Patient Instructions: Wrist Sprain ED Scripts Ibuprofen (Ibuprofen) 600 Mg Tablet 600 MG PO Q6H for PAIN, #12 TAB 0 Refills Prov: ERIC CHRISTIAN 06/02/22 ERIC CHRISTIAN Jun 02, 2022 20:13
[2022-06-02] MEDS ORDERED: IBUPROFEN 600 MG (MOTRIN) TAB PO ONE (20:15)
--- NOTE | 2022-06-02 20:36 | Diagnostic Imaging Report ---
INDICATION: Pain. COMPARISON: None available. TECHNIQUE: Three radiographs of the left wrist dated June 02, 2022. FINDINGS: No acute fracture or dislocation. No destructive osseous process. Carpal alignment is well maintained. No suspicious radiopaque foreign body. IMPRESSION: No acute osseous abnormality. Dictated by: Dictated on workstation # [id number]
[2022-06-02] MEDS ORDERED: IBUP-1773 PO (20:42)
[2022-06-02 21:00] VITALS: BP 105/69
== END 2022-06-02 21:02 | disposition home or self-care (01) ==
LOC: EDUNIT# 19:45 → ER 19:47
DX: S63.502A Unspecified sprain of left wrist, initial encounter (principal); W18.30XA Fall on same level, unspecified, initial encounter
CPT/HCPCS: 73110

== ENCOUNTER 2023-01-25 06:42 | Inpatient (IN) | payer MEDICARE ==
[2023-01-25] VITALS (25 sets, daily range): BP systolic 110–149; BP diastolic 56–86
[~2023-01-25] VITALS: Ht 172.2 cm; Wt 79.0 kg
[~2023-01-25 06:42] MED LIST changes: +IBUP-1773 PO
[2023-01-25] MEDS ORDERED: AMPICILLIN FOR IV USE 2,000 MG in NS (IVPB) 50 ML IV SCH (11:06)
[2023-01-25] MEDS ORDERED: MINERAL OIL 30 ML UDC TOP PRN (11:15)
[2023-01-25 11:33] LABS: BASOPHILS % (AUTO) 0 % (0-10); EOSINOPHILS # (AUTO) 0.4 10^3/uL (0.0-0.3); EOSINOPHILS % (AUTO) 3 % (0-10); HEMATOCRIT 42 % (35-52); HEMOGLOBIN 14.8 g/dL (11.5-16.0); LYMPHOCYTES # (AUTO) 3.2 10^3/uL (1.0-4.0); LYMPHOCYTES % (AUTO) 27 % (12-44); MEAN CORPUSCULAR HEMOGLOBIN 31 pg (25-34); MEAN CORPUSCULAR HGB CONC 35 g/dL (32-36); MEAN CORPUSCULAR VOLUME 90 fL (80-99); MEAN PLATELET VOLUME 9.9 fL (9.0-12.2); MONOCYTES # (AUTO) 0.5 10^3/uL (0.0-1.0); MONOCYTES % (AUTO) 4 % (0-12); NEUTROPHILS # (AUTO) 7.8 10^3/uL (1.8-7.8); NEUTROPHILS % (AUTO) 65 % (42-75); PLATELET COUNT 279 10^3/uL (130-400)
[2023-01-25 11:42] LABS: BILIRUBIN,URINE NEGATIVE (NEGATIVE); CLARITY,URINE CLEAR; COLOR,URINE YELLOW; GLUCOSE, URINE (UA) NEGATIVE (NEGATIVE); KETONES,URINE NEGATIVE (NEGATIVE); LEUKOCYTE ESTERASE ,URINE NEGATIVE (NEGATIVE); NITRITE,URINE NEGATIVE (NEGATIVE); PROTEIN,URINE NEGATIVE (NEGATIVE)
[2023-01-25] MEDS: D5 LR IV SOLUTION 1,000 ML IV SCH ×2 (11:47→19:35)
[2023-01-25 11:50] LABS: BACTERIA,URINE FEW /HPF
[2023-01-25] MEDS ORDERED: PREN-37 PO (11:50)
[2023-01-25 11:56] LABS: AMPHETAMINE SCREEN, URINE NEGATIVE (NEGATIVE); BARBITURATE SCREEN URINE NEGATIVE (NEGATIVE); BENZODIAZEPINES SCREEN URINE NEGATIVE (NEGATIVE); CANNABINOID SCREEN, URINE NEGATIVE (NEGATIVE); COCAINE SCREEN URINE NEGATIVE (NEGATIVE); OPIATE SCREEN URINE NEGATIVE (NEGATIVE)
[2023-01-25 11:57] LABS: METHADONE STAT NEGATIVE (NEGATIVE); OXYCODONE STAT NEGATIVE (NEGATIVE); PROPOXYPHENE STAT NEGATIVE (NEGATIVE); TRICYCLIC ANTIDEPRESSANTS SCRE NEGATIVE (NEGATIVE)
--- NOTE | 2023-01-25 12:21 | History & Physical-OB/GYN ---
SANDOR WATTS 01/25/23 1221: OB - Chief Complaint & HPI Date/Time Date of Admission: Date of Admission: Jan 25, 2023 at 11:10 Date seen by a Provider: Jan 25, 2023 Time Seen by a Provider: 10:30 Chief Complaint/History OB-Reason for Admission/Chief: Onset of Labor Hx : 1 Hx Para: 0 Expected Date of Delivery: Feb 07, 2023 Gestational Age in Weeks: 38 Gestational Age in Days: 1 Other reason for admission: 27 y/o , GA 38.1, GBS+, presents for onset of contractions. Pt states contractions began on 01/24 in the afternoon. Pt is uncertain of the frequency of the contractions at time of onset. Pt states she presented to the hospital due to increased discomfort with contractions. Pt states the pain/intensity of the contractions is currently 9/10. Pt reports possible leakage of fluid throughout the day yesterday. Pt denies vaginal bleeding and reports positive movement. Pt received routine care with Dr. Malcolm. Admission Nurse Assessment Rev: Yes History of Labs O+, Ab neg GBS + HepB NR HIV NR RI RPR NR G/C pos on 01/15, pt has received treatment with azithromycin and Rocephin Allergies and Home Medications Allergies Coded Allergies: No Known Drug Allergies (Unverified , 06/27/14) Patient Home Medication List Home Medication List Reviewed: Yes Vit/Iron Fumarate/FA ( Tablet) 27 Mg Iron-800 Mcg Tablet, 1 EACH PO DAILY, (Reported) Entered as Reported by: CHARLIE URRUTIA on 01/25/23 1150 Last Action: New Order Discontinued Medications Azithromycin (Azithromycin) 250 Mg Tablet, 250 MG PO DAILY Discontinued Reason: No Longer Taking Prescribed by: JONY LOPEZ on 02/19/212013 Last Action: Discontinued Ibuprofen (Ibuprofen) 600 Mg Tablet, 600 MG PO Q6H Discontinued Reason: No Longer Taking Prescribed by: KISHA WALTON on 06/02/222041 Last Action: Discontinued Medroxyprogesterone Acet (Depo-Provera) 150 Mg/Ml Disp.syrin, 150 MG IM UD, (Reported) Discontinued Reason: No Longer Taking Entered as Reported by: FIFI HORN on 04/28/15 8041 Last Action: Discontinued Prednisone (Prednisone) 5 Mg Tablet, 5 MG PO UD PRN for RASH Discontinued Reason: No Longer Taking Prescribed by: JONY LOPEZ on 01/21/18 1628 Last Action: Discontinued Prednisone (Prednisone) 20 Mg Tab, 40 MG PO DAILY Discontinued Reason: No Longer Taking Prescribed by: JONY LOPEZ on 02/19/212013 Last Action: Discontinued [Depoproveria] , 1 PKT IM UD, (Reported) Discontinued Reason: No Longer Taking Entered as Reported by: LADONNA NAVARRO on 06/27/142131 Last Action: Discontinued OB - History Hx of Present Care: Yes Ultrasounds: Normal mid trimester US Obstetrical Complications: Other (gonorrhea/chlamydia infection in third trimester, positive UDS for methamphetamines in first trimester) Medical Complications: Other (pt is Deaf) Information Induced Hypertension: No Maternal Gestational Diabetes: No Hemorrhage: No Obstetrical History Hx : 1 Hx Para: 0 Hx # Term Pregnancies: 0 Hx # Pregnancies: 0 Number of Living Children: 0 Hx Termination: No Hx Multiple Gestation: No Hx Ectopic : No Hx Stillbirth: No Hx Complication: No Hx Induced Hypertens: No Hx Maternal Gestational Diabet: No Hx Hemorrhage: No Delivery History Hx Blood Disorders: No Patient Past Medical History Pt denies. No PMHx of HTN or asthma Social History/Family History Alcohol Use: Denies Use Recreational Drug Use: No Smoking Cessation: Current every day smoker (5 cigarettes per day) 2nd Hand Smoke Exposure: Yes Immunizations Influenza Vaccine Up-to-Date: Yes; Up-to-Date Tetanus Booster (TDap): Less than 5yrs Rubella: immune RPR/VDRL: Negative GBS Status: Positive HBsAG: Negative OB - Admission Exam Physical Exam Vitals: Vital Signs 01/25/23 01/25/23 01/25/23 07:57 09:25 10:00 Temp 36.7 Pulse 76 Resp 16 B/P (MAP) 127/76 (93) Pulse Ox 100 O2 Delivery Room Air Heart: Rhythm Normal Lungs: Clear Abdomen: Non tender Extremities: Normal Cervical Dilatation: 4cm Effacement: Other (70%) Station: -1 Membranes: Intact Heart Rate: 130's Accelerations: Accelerations Present Decelerations: No Decelerations Leadership Development Manager Variability: Average (6-25) Contractions on Admission: < 5 Minutes Apart (q2-5 minutes) Date/Time Contractions Began;: 01/24/2023, 1500 Intensity: Moderate An Scoring Tool (Modified) Dilation (cm): 3-4cm (2) Effacement (%): 51-79% (2) Descent/Station: -1,0 (2) Cervix Consistency: Soft (2) Subtract 1 point for: Nulliparity (-1) Labs Laboratory Tests Test 01/25/23 10:00 01/25/23 11:20 Range/Units Urine Color YELLOW Urine Clarity CLEAR Urine pH 7.0 5-9 Urine Specific [place] 1.010 L 1.016-1.022 Urine Protein NEGATIVE NEGATIVE Urine Glucose (UA) NEGATIVE NEGATIVE Urine Ketones NEGATIVE NEGATIVE Urine Nitrite NEGATIVE NEGATIVE Urine Bilirubin NEGATIVE NEGATIVE Urine Urobilinogen 0.2 < = 1.0 MG/DL Urine Leukocyte Esterase NEGATIVE NEGATIVE Urine RBC (Auto) NEGATIVE NEGATIVE Urine RBC NONE /HPF Urine WBC NONE /HPF Urine Squamous Epithelial Cells 2-5 /HPF Urine Crystals NONE /LPF Urine Bacteria FEW H /HPF Urine Casts NONE /LPF Urine Mucus NEGATIVE /LPF Urine Culture Indicated NO Urine Opiates Screen NEGATIVE NEGATIVE Urine Oxycodone Screen NEGATIVE NEGATIVE Urine Methadone Screen NEGATIVE NEGATIVE Urine Propoxyphene Screen NEGATIVE NEGATIVE Urine Barbiturates Screen NEGATIVE NEGATIVE Ur Tricyclic Antidepressants Screen NEGATIVE NEGATIVE Urine Phencyclidine Screen NEGATIVE NEGATIVE Urine Amphetamines Screen NEGATIVE NEGATIVE Urine Methamphetamines Screen NEGATIVE NEGATIVE Urine Benzodiazepines Screen NEGATIVE NEGATIVE Urine Cocaine Screen NEGATIVE NEGATIVE Urine Cannabinoids Screen NEGATIVE NEGATIVE White Blood Count 12.0 H 4.3-11.0 10^3/uL Red Blood Count 4.72 3.80-5.11 10^6/uL Hemoglobin 14.8 11.5-16.0 g/dL Hematocrit 42 35-52 % Mean Corpuscular Volume 90 80-99 fL Mean Corpuscular Hemoglobin 31 25-34 pg Mean Corpuscular Hemoglobin Concent 35 32-36 g/dL Red Cell Distribution Width 13.1 10.0-14.5 % Platelet Count 279 130-400 10^3/uL Mean Platelet Volume 9.9 9.0-12.2 fL Immature Granulocyte % (Auto) 1 % Neutrophils (%) (Auto) 65 42-75 % Lymphocytes (%) (Auto) 27 12-44 % Monocytes (%) (Auto) 4 0-12 % Eosinophils (%) (Auto) 3 0-10 % Basophils (%) (Auto) 0 0-10 % Neutrophils # (Auto) 7.8 1.8-7.8 10^3/uL Lymphocytes # (Auto) 3.2 1.0-4.0 10^3/uL Monocytes # (Auto) 0.5 0.0-1.0 10^3/uL Eosinophils # (Auto) 0.4 H 0.0-0.3 10^3/uL Basophils # (Auto) 0.0 0.0-0.1 10^3/uL Immature Granulocyte # (Auto) 0.1 0.0-0.1 10^3/uL OB - Assessment/Plan/Diagnosis Assessment Assessment: other (onset of labor) Admission Dx 27 y/o , GA 38.1, GBS+, presents for onset of contractions/labor. Admission Status: Inpatient Order (span 2 midnights) Reason for Inpatient Admission: Onset of labor Plan Plan: Expectant Management Problems: (1) Uterine contractions Onset Date: ~ 01/24/2023 Assessment & Plan: Expectant management -SVE q2 hours to assess whether or not the patient is making change -GBS+, IV ampicillin -Epidural for pain management when the pt requests -Continuous monitoring (2) 38 weeks gestation of Assessment & Plan: Expectant management -SVE q2 hours to assess whether or not the patient is making change -GBS+, IV ampicillin -Epidural for pain management when the pt requests -Continuous monitoring -Due to the patient being , 38.1 wga, and GBS+, augmentation of labor is not recommended at this time -UDS due to positive UDS for methamphetamines in first trimester -CBC, type and screen, syphilis PILY BILLINGSLEY MD 01/25/23 1323: Allergies and Home Medications Allergies Coded Allergies: No Known Drug Allergies (Unverified , 06/27/14) Patient Home Medication List Vit/Iron Fumarate/FA ( Tablet) 27 Mg Iron-800 Mcg Tablet, 1 EACH PO DAILY, (Reported) Entered as Reported by: CHARLIE URRUTIA on 01/25/23 1150 Last Action: New Order Discontinued Medications Azithromycin (Azithromycin) 250 Mg Tablet, 250 MG PO DAILY Discontinued Reason: No Longer Taking Prescribed by: JONY LOPEZ on 02/19/212013 Last Action: Discontinued Ibuprofen (Ibuprofen) 600 Mg Tablet, 600 MG PO Q6H Discontinued Reason: No Longer Taking Prescribed by: KISHA WALTON on 06/02/222041 Last Action: Discontinued Medroxyprogesterone Acet (Depo-Provera) 150 Mg/Ml Disp.syrin, 150 MG IM UD, (Reported) Discontinued Reason: No Longer Taking Entered as Reported by: FIFI HORN on 04/28/15 2313 Last Action: Discontinued Prednisone (Prednisone) 5 Mg Tablet, 5 MG PO UD PRN for RASH Discontinued Reason: No Longer Taking Prescribed by: JONY LOPEZ on 01/21/18 1628 Last Action: Discontinued Prednisone (Prednisone) 20 Mg Tab, 40 MG PO DAILY Discontinued Reason: No Longer Taking Prescribed by: JONY LOPEZ on 02/19/212013 Last Action: Discontinued [Depoproveria] , 1 PKT IM UD, (Reported) Discontinued Reason: No Longer Taking Entered as Reported by: LADONNA NAVARRO on 06/27/142131 Last Action: Discontinued Supervisory-Addendum Brief Verification & Attestation Participated in pt care: history, MDM, physical Personally performed: history, MDM, supervision of care Care discussed with: Medical Student Procedures: n/a I personally have seen and evaluated the patient and repeated my own history and exam. General A&O, no increased work of breathing. heart rate tracing category I, contractions every 2-5 minutes. Cervical exam per nursing. Pt treated for chlamydia in early , repeat negative, but on 01/08/23 had positive GC and chlamydia which were treated 01/15. I directed the plan of care as documented by the medical student. SANDOR WATTS Jan 25, 2023 12:21 PILY BILLINGSLEY MD Jan 25, 2023 13:23
[2023-01-25] MEDS: CATHETER FLUSH 10 ML SYR IV SCH ×2 (14:00→22:00)
[2023-01-25] MEDS: AMPICILLIN FOR IV USE 1,000 MG in NS (IVPB) 50 ML IV SCH ×3 (15:36→23:29)
[2023-01-25] MEDS ORDERED: ZOLPIDEM 5 MG (AMBIEN) TAB PO ONE (20:15)
[2023-01-26] VITALS (49 sets, daily range): BP systolic 101–143; BP diastolic 52–100
[2023-01-26] MEDS: D5 LR IV SOLUTION 1,000 ML IV SCH ×3 (03:13→19:27)
[2023-01-26] MEDS: AMPICILLIN FOR IV USE 1,000 MG in NS (IVPB) 50 ML IV SCH ×5 (03:13→19:27)
[2023-01-26] MEDS: CATHETER FLUSH 10 ML SYR IV SCH (06:00)
[2023-01-26] MEDS ORDERED: OXYTOCIN PRE-MIX DRIP 500 ML IV SCH ×2 (07:30→22:45)
[2023-01-26 08:01] LABS: ALBUMIN 2.8 GM/DL (3.2-4.5)
[2023-01-26 08:02] LABS: POTASSIUM 3.8 MMOL/L (3.6-5.0)
[2023-01-26 08:03] LABS: CALCIUM 8.5 MG/DL (8.5-10.1)
[2023-01-26 08:04] LABS: TOTAL PROTEIN 5.7 GM/DL (6.4-8.2)
[2023-01-26 08:06] LABS: BILIRUBIN,TOTAL 0.5 MG/DL (0.1-1.0)
[2023-01-26 08:08] LABS: CREATININE SERUM 0.63 MG/DL (0.60-1.30)
[2023-01-26 08:11] LABS: URIC ACID 4.7 MG/DL (2.6-7.2)
--- NOTE | 2023-01-26 08:17 | Labor Progress Note ---
ANTHONY WATTSA 01/26/23 0817: Labor Progress Note Labor Progress Note Date Seen by Provider: Jan 26, 2023 Time Seen by Provider: 07:15 Subjective: Patient is a 27 y/o , 38.2 wga, GBS+, who presented on 01/25 with contractions. Patient was monitored throughout the day/night. Patient's contractions have decreased in frequency and intensity, and the patient has made minimal cervical change. Pt has received IV ampicillin for GBS. Pt has had three elevated BP readings over the last 24 hours. Pt is agreeable to augmentation of labor with pitocin and pre-eclampsia studies have been ordered. Objective: Cervical exam: /- Consistency: Soft Presentation: Vertex heart tones: 130 beats per minute, moderate variability, accelerations present, no deceleration. Cat I, reactive. Tocometer: 1-2 ctx/10 minutes Assessment/Plan: Pt is a 27 y/o , 38.2 wga. CEFM/TOCO PIH vs. pre-eclampsia: - 3 elevated BPs on 01/25: 149/79 @ 0721 , 145/86 @ 1400, 141/70 @ 2333 -Pre-eclampsia laboratory studies ordered. -Platelets 279, AST 13, ALT 9, uric acid 4.7, urine dip pending -Continue close monitoring of BP, [id number] Augmentation of labor beginning 01/26 with Pitocin protocol. CLD. Patient may receive epidural when desired Anticipate vaginal delivery. Vitals - Labs Vital Signs - I&O Vital Signs Date Time Temp Pulse Resp B/P (MAP) Pulse Ox O2 Delivery O2 Flow Rate FiO2 01/26/23 03:14 36.1 75 16 132/59 (83) 98 Room Air 01/25/23 23:33 36.7 80 16 141/70 (93) 100 Room Air 01/25/23 21:07 93 16 127/66 (86) Room Air 01/25/23 20:50 90 16 125/86 (99) Room Air 01/25/23 20:20 36.8 86 16 127/58 (81) Room Air 01/25/23 19:20 92 16 136/76 (96) Room Air 01/25/23 18:50 81 16 117/56 (76) Room Air 01/25/23 18:20 85 16 125/56 (79) Room Air 01/25/23 18:00 16 Room Air 01/25/23 17:20 36.6 01/25/23 17:00 16 Room Air 01/25/23 16:50 84 16 120/72 (88) Room Air 01/25/23 16:20 84 16 135/77 (96) Room Air 01/25/23 16:00 16 Room Air 01/25/23 15:50 87 16 122/72 (89) Room Air 01/25/23 15:20 85 16 110/83 (92) Room Air 01/25/23 15:00 16 135/84 (101) Room Air 01/25/23 14:00 16 145/86 (105) Room Air 01/25/23 13:00 36.5 79 16 131/74 (93) Room Air 01/25/23 11:00 36.4 01/25/23 10:00 76 16 127/76 (93) Room Air 01/25/23 09:25 75 16 126/79 (95) 100 Room Air 01/25/23 09:00 76 16 113/82 (92) 100 Room Air 01/25/23 08:55 76 16 132/82 (99) 100 Room Air 01/25/23 08:40 75 16 126/77 (93) 100 Room Air I & O 01/26/23 07:00 Intake Total 2050 ml Balance 2050 ml Labs Laboratory Tests 01/25/23 10:00: Urine Color YELLOW, Urine Clarity CLEAR, Urine pH 7.0, Urine Specific [place] 1.010L, Urine Protein NEGATIVE, Urine Glucose (UA) NEGATIVE, Urine Ketones NEGATIVE, Urine Nitrite NEGATIVE, Urine Bilirubin NEGATIVE, Urine Urobilinogen 0.2, Urine Leukocyte Esterase NEGATIVE, Urine RBC (Auto) NEGATIVE, Urine RBC NONE, Urine WBC NONE, Urine Squamous Epithelial Cells 2-5, Urine Crystals NONE, Urine Bacteria FEWH, Urine Casts NONE, Urine Mucus NEGATIVE, Urine Culture I ndicated NO, Urine Opiates Screen NEGATIVE, Urine Oxycodone Screen NEGATIVE, Urine Methadone Screen NEGATIVE, Urine Propoxyphene Screen NEGATIVE, Urine Barbiturates Screen NEGATIVE, Ur Tricyclic Antidepressants Screen NEGATIVE, Urine Phencyclidine Screen NEGATIVE, Urine Amphetamines Screen NEGATIVE, Urine Methamphetamines Screen NEGATIVE, Urine Benzodiazepines Screen NEGATIVE, Urine Cocaine Screen NEGATIVE, Urine Cannabinoids Screen NEGATIVE 01/25/23 11:20: White Blood Count 12.0H, Red Blood Count 4.72, Hemoglobin 14.8, Hematocrit 42, Mean Corpuscular Volume 90, Mean Corpuscular Hemoglobin 31, Mean Corpuscular H emoglobin Concent 35, Red Cell Distribution Width 13.1, Platelet Count 279, Mean Platelet Volume 9.9, Immature Granulocyte % (Auto) 1, Neutrophils (%) (Auto) 65, Lymphocytes (%) (Auto) 27, Monocytes (%) (Auto) 4, Eosinophils (%) (Auto) 3, Basophils (%) (Auto) 0, Neutrophils # (Auto) 7.8, Lymphocytes # (Auto) 3.2, Monocytes # (Auto) 0.5, Eosinophils # (Auto) 0.4H, Basophils # (Auto) 0.0, Immature Granulocyte # (Auto) 0.1 01/26/23 07:41: Sodium Level 136, Potassium Level 3.8, Chloride Level 106, Carbon Dioxide Level 22, Anion Gap 8, Blood Urea Nitrogen 3L, Creatinine 0.63, Estimat Glomerular Filtration Rate 125, BUN/Creatinine Ratio 5, Glucose Level 98, Calcium Level 8.5, Corrected Calcium 9.5, Total Bilirubin 0.5, Aspartate Amino Transf (AST/SGOT) 13, Alkaline Phosphatase 156H, Lactate Dehydrogenase 176, Total Protein 5.7L, Albumin 2.8L PILY BILLINGSLEY MD 01/26/23 191: Labor Progress Note Labor Progress Note Date Seen by Provider: Jan 26, 2023 Time Seen by Provider: 07:10 I personally saw and examined patient (cervical exam documented is my exam). Discussed with patient her protracted latent labor, she was not comfortable going home last night due to persistent contractions in spite of minimal cervical change, and desires augmentation rather than further monitoring, and additionally has had 3 elevated blood pressures, consistent with gestational hypertension which in and of itself would be an indication for augmentation. All this discussed with patient and she prefers to proceed with augmentation. I directed the plan of care as documented by the medical student. SANDOR WATTS Jan 26, 2023 08:17 PILY BILLINGSLEY MD Jan 26, 2023 19:14
[2023-01-26] MEDS ORDERED: fentaNYL 2 mcg/ml BUPIVA 0.125 100 ML ONE (10:17)
[2023-01-26] MEDS ORDERED: fentaNYL INJ 100 MCG/2 ML AMP ONE (11:58)
[2023-01-26] MEDS: fentaNYL 2 mcg/ml BUPIVA 0.125 100 ML EPI SCH ×2 (12:00→18:46)
[2023-01-26] MEDS ORDERED: METOCLOPRAMIDE INJ 10 MG/2 ML (REGLAN) IV PRN (12:15)
[2023-01-26] MEDS ORDERED: LACTATED RINGERS 1,000 ML IV ONE (12:15)
[2023-01-26] MEDS ORDERED: ONDANSETRON 4 MG/2 ML (SDV) Z0FRAN IV PRN (12:15)
[2023-01-26] MEDS ORDERED: NALOXONE 0.4 MG/ML 1 ML (NARCAN) VIAL IV PRN ×2 (12:15)
[2023-01-26] MEDS ORDERED: diphenhydrAMINE 50 MG/ML INJ (BENADRYL) IV PRN (12:15)
--- NOTE | 2023-01-26 17:32 | Labor Progress Note ---
SANDOR WATTS 01/26/23 1732: Labor Progress Note Labor Progress Note Date Seen by Provider: Jan 26, 2023 Time Seen by Provider: 17:15 Subjective: Pt denies complaints. Pt is agreeable to SVE and AROM. Objective: Cervical exam: /0 -> AROM -> /0 Consistency: Soft Position: Anterior Presentation: Vertex heart tones: 135 beats per minute, moderate variability, accelerations present, no decelerations, Cat. I, reactive Tocometer: 1-2 ctx q 10 minutes Assessment/Plan: Pt is a 27 y/o , 38.2 wga, GBS+ CEFM/TOCO IV ampicillin administered Pre-eclampsia labs unremarkable, continue to monitor BP. BP stable at this time. BP 140/84 @ 1550. Continue pitocin per protocol Anesthesia: epidural AROM at 1720, clear fluid, head well-applied Anticipate vaginal delivery. Vitals - Labs Vital Signs - I&O Vital Signs Date Time Temp Pulse Resp B/P (MAP) Pulse Ox O2 Delivery O2 Flow Rate FiO2 01/26/23 16:35 93 16 117/68 (84) Room Air 01/26/23 16:30 16 Room Air 01/26/23 16:20 103 16 114/82 (93) Room Air 01/26/23 16:15 16 Room Air 01/26/23 16:05 95 16 120/57 (78) Room Air 01/26/23 16:00 16 Room Air 01/26/23 15:50 91 16 140/84 (102) Room Air 01/26/23 15:45 16 Room Air 01/26/23 15:35 82 16 121/56 (77) Room Air 01/26/23 15:30 16 Room Air 01/26/23 15:15 83 16 100 Room Air 01/26/23 15:00 71 16 100 Room Air 01/26/23 14:50 71 16 103/57 (72) 98 Room Air 01/26/23 14:45 Room Air 01/26/23 14:35 64 16 107/55 (72) 98 Room Air 01/26/23 14:30 Room Air 01/26/23 14:20 64 16 105/55 (72) 100 Room Air 01/26/23 14:15 Room Air 01/26/23 14:05 65 16 102/52 (69) 98 Room Air 01/26/23 14:00 Room Air 01/26/23 13:55 65 16 107/56 (73) 100 Room Air 01/26/23 13:45 Room Air 01/26/23 13:40 74 16 122/56 (78) 99 Room Air 01/26/23 13:30 16 Room Air 01/26/23 13:15 16 98 Room Air 01/26/23 13:05 72 16 131/57 (81) 99 Room Air 01/26/23 13:00 16 98 Room Air 01/26/23 12:45 68 16 119/58 (78) 98 Room Air 01/26/23 12:42 71 16 137/58 (84) 97 Room Air 01/26/23 12:36 70 16 129/64 (85) 98 Room Air 01/26/23 12:33 72 16 133/71 (91) 98 Room Air 01/26/23 12:30 88 16 136/68 (90) 98 Room Air 01/26/23 12:27 95 16 124/64 (84) 98 Room Air 01/26/23 12:15 16 Room Air 01/26/23 12:13 36.7 78 16 120/68 (85) 98 Room Air 01/26/23 12:05 75 16 119/59 (79) 98 Room Air 01/26/23 12:00 73 16 124/66 (85) 100 Room Air 01/26/23 11:50 89 16 133/92 (106) 92 Room Air 01/26/23 11:45 79 16 122/72 (89) 100 Room Air 01/26/23 11:30 16 Room Air 01/26/23 11:15 78 16 113/70 (84) Room Air 01/26/23 11:00 36.2 16 Room Air 01/26/23 10:45 16 Room Air 01/26/23 10:30 16 Room Air 01/26/23 10:15 16 Room Air 01/26/23 10:00 80 16 115/73 (87) Room Air 01/26/23 09:45 70 16 101/60 (74) Room Air 01/26/23 09:30 73 16 106/60 (75) Room Air 01/26/23 09:15 68 16 103/54 (70) Room Air 01/26/23 09:00 74 16 114/71 (85) Room Air 01/26/23 08:45 36.3 71 16 114/66 (82) 97 Room Air 01/26/23 07:15 104 16 112/78 (89) 97 Room Air 01/26/23 03:14 36.1 75 16 132/59 (83) 98 Room Air 01/25/23 23:33 36.7 80 16 141/70 (93) 100 Room Air 01/25/23 21:07 93 16 127/66 (86) Room Air 01/25/23 20:50 90 16 125/86 (99) Room Air 01/25/23 20:20 36.8 86 16 127/58 (81) Room Air 01/25/23 19:20 92 16 136/76 (96) Room Air 01/25/23 18:50 81 16 117/56 (76) Room Air 01/25/23 18:20 85 16 125/56 (79) Room Air 01/25/23 18:00 16 Room Air I & O 01/26/23 07:00 Intake Total 2050 ml Balance 2050 ml Labs Laboratory Tests 01/26/23 07:41: Sodium Level 136, Potassium Level 3.8, Chloride Level 106, Carbon Dioxide Level 22, Anion Gap 8, Blood Urea Nitrogen 3L, Creatinine 0.63, Estimat Glomerular Filtration Rate 125, BUN/Creatinine Ratio 5, Glucose Level 98, Uric Acid 4.7, Calcium Level 8.5, Corrected Calcium 9.5, Total Bilirubin 0.5, Aspartate Amino Transf (AST/SGOT) 13, Alanine Aminotransferase (ALT/SGPT) 9, Alkaline Phosphatase 156H, Lactate Dehydrogenase 176, Total Protein 5.7L, Albumin 2.8L 01/26/23 08:23: Urine Protein 8, Urine Creatinine 76, Urine Protein/Creatinine Ratio 0.11 PILY BILLINGSLEY MD 01/26/231916: Labor Progress Note Labor Progress Note Date Seen by Provider: Jan 26, 2023 Time Seen by Provider: 17:00 I personally saw and examined patient, did my own cervical exam and then oversaw the medical student perform the AROM and I rechecked postrupture to confirm status and exam. I directed the plan of care as documented by the medical student. SANDOR WATTS Jan 26, 2023 17:32 PILY BILLINGSLEY MD Jan 26, 2023 19:17
[2023-01-26] MEDS ORDERED: LIDOCAINE 1% INJ 10 ML VIAL ONE (20:40)
--- NOTE | 2023-01-26 22:36 | OB Labor & Delivery Record ---
SANDOR WATTS 01/26/236: Vag Delivery Note Vag Delivery Note Date of Delivery: 01/26/23 Preoperative Diagnosis: Marilyn New, 27 y/o , 38.2 wga, GBS+ Postoperative Diagnosis: Same Surgeon: Dr. Bahena Motorcycle Mechanic: Sandor Watts, MS4 Anesthesia: Epidural Delivery Type: Findings: Viable male infant, apgars 8, 9, weight 3345g, 7lbs 6oz Lacerations: bilateral labial Intact placenta with 3 vessel cord. No nuchal cord, body cord or shoulder dystocia Estimated Blood Loss: 400 ml Complications: None Condition: Stable Description of Procedure: The patient is a 27 year old female who presented to [facility] on 01/25 with contractions. She was admitted and informed consent was obtained. Her labor course was remarkable for GBS+ and gestastional hypertension without severe features. Pt received 9 doses of IV ampicillin. AROM on 01/26 at 1720. She progressed to complete dilatation and began to push. She was then set up for delivery. The 's head was delivered atraumatically in the ALEYDA position. The shoulders and remainder of the 's body were then delivered without difficulty. Upon delivery, the infant was vigorous and placed on maternal chest and the mouth and nares were bulb suctioned. After a delay cord was doubly clamped and cut and the infant remained on maternal chest. An intact placenta with 3-vessel cord delivered via [place] and there was found to be minimal bleeding.~ Vigorous fundal massage was performed and the fundus was found to be firm. IV oxytocin was given. Examination of the vagina and perineum revealed bilateral labial lacerations repaired in the usual fashion with 3-0 vicryl rapide suture. Following the repair, sponge, instrument and needle counts were correct. Mom and baby were both in stable condition in the labor suite. Vitals - Labs Vital Signs - I&O Vital Signs Date Time Temp Pulse Resp B/P (MAP) Pulse Ox O2 Delivery O2 Flow Rate FiO2 01/26/23 19:51 76 16 113/71 (85) Room Air 01/26/23 19:40 77 16 108/58 (75) Room Air 01/26/23 19:21 36.7 81 16 129/60 (83) Room Air 01/26/23 19:00 16 Room Air 01/26/23 18:50 100 16 122/53 (76) Room Air 01/26/23 18:45 16 Room Air 01/26/23 18:35 78 16 130/76 (94) Room Air 01/26/23 18:30 16 Room Air 01/26/23 18:20 88 16 132/75 (94) Room Air 01/26/23 18:15 16 Room Air 01/26/23 18:05 79 16 124/80 (95) Room Air 01/26/23 18:00 16 Room Air 01/26/23 17:50 71 16 130/74 (92) Room Air 01/26/23 17:45 16 Room Air 01/26/23 17:35 76 16 128/71 (90) Room Air 01/26/23 17:30 16 Room Air 01/26/23 17:15 16 Room Air 01/26/23 17:00 16 Room Air 01/26/23 16:50 36.7 85 16 117/67 (84) Room Air 01/26/23 16:45 16 Room Air 01/26/23 16:35 93 16 117/68 (84) Room Air 01/26/23 16:30 16 Room Air 01/26/23 16:20 103 16 114/82 (93) Room Air 01/26/23 16:15 16 Room Air 01/26/23 16:05 95 16 120/57 (78) Room Air 01/26/23 16:00 16 Room Air 01/26/23 15:50 91 16 140/84 (102) Room Air 01/26/23 15:45 16 Room Air 01/26/23 15:35 82 16 121/56 (77) Room Air 01/26/23 15:30 16 Room Air 01/26/23 15:15 83 16 100 Room Air 01/26/23 15:00 71 16 100 Room Air 01/26/23 14:50 71 16 103/57 (72) 98 Room Air 01/26/23 14:45 Room Air 01/26/23 14:35 64 16 107/55 (72) 98 Room Air 01/26/23 14:30 Room Air 01/26/23 14:20 64 16 105/55 (72) 100 Room Air 01/26/23 14:15 Room Air 01/26/23 14:05 65 16 102/52 (69) 98 Room Air 01/26/23 14:00 Room Air 01/26/23 13:55 65 16 107/56 (73) 100 Room Air 01/26/23 13:45 Room Air 01/26/23 13:40 74 16 122/56 (78) 99 Room Air 01/26/23 13:30 16 Room Air 01/26/23 13:15 16 98 Room Air 01/26/23 13:05 72 16 131/57 (81) 99 Room Air 01/26/23 13:00 16 98 Room Air 01/26/23 12:45 68 16 119/58 (78) 98 Room Air 01/26/23 12:42 71 16 137/58 (84) 97 Room Air 01/26/23 12:36 70 16 129/64 (85) 98 Room Air 01/26/23 12:33 72 16 133/71 (91) 98 Room Air 01/26/23 12:30 88 16 136/68 (90) 98 Room Air 01/26/23 12:27 95 16 124/64 (84) 98 Room Air 01/26/23 12:15 16 Room Air 01/26/23 12:13 36.7 78 16 120/68 (85) 98 Room Air 01/26/23 12:05 75 16 119/59 (79) 98 Room Air 01/26/23 12:00 73 16 124/66 (85) 100 Room Air 01/26/23 11:50 89 16 133/92 (106) 92 Room Air 01/26/23 11:45 79 16 122/72 (89) 100 Room Air 01/26/23 11:30 16 Room Air 01/26/23 11:15 78 16 113/70 (84) Room Air 01/26/23 11:00 36.2 16 Room Air 01/26/23 10:45 16 Room Air 01/26/23 10:30 16 Room Air 01/26/23 10:15 16 Room Air 01/26/23 10:00 80 16 115/73 (87) Room Air 01/26/23 09:45 70 16 101/60 (74) Room Air 01/26/23 09:30 73 16 106/60 (75) Room Air 01/26/23 09:15 68 16 103/54 (70) Room Air 01/26/23 09:00 74 16 114/71 (85) Room Air 01/26/23 08:45 36.3 71 16 114/66 (82) 97 Room Air 01/26/23 07:15 104 16 112/78 (89) 97 Room Air 01/26/23 03:14 36.1 75 16 132/59 (83) 98 Room Air 01/25/23 23:33 36.7 80 16 141/70 (93) 100 Room Air I & O 01/26/23 07:00 Intake Total 2050 ml Balance 2050 ml Labs Laboratory Tests 01/26/23 07:41: Sodium Level 136, Potassium Level 3.8, Chloride Level 106, Carbon Dioxide Level 22, Anion Gap 8, Blood Urea Nitrogen 3L, Creatinine 0.63, Estimat Glomerular Filtration Rate 125, BUN/Creatinine Ratio 5, Glucose Level 98, Uric Acid 4.7, Calcium Level 8.5, Corrected Calcium 9.5, Total Bilirubin 0.5, Aspartate Amino Transf (AST/SGOT) 13, Alanine Aminotransferase (ALT/SGPT) 9, Alkaline Phosphatase 156H, Lactate Dehydrogenase 176, Total Protein 5.7L, Albumin 2.8L 01/26/23 08:23: Urine Protein 8, Urine Creatinine 76, Urine Protein/Creatinine Ratio 0.11 PILY BAHENA MD 01/26/23 8436: Supervisory-Addendum Brief Supervisory Addendum I attended this delivery with medical student assistance and agree with documentation. SANDOR WATTS Jan 26, 2023 22:36 PILY BAHENA MD Jan 26, 2023 22:46
[2023-01-26] MEDS ORDERED: LIDOCAINE 1% INJ 10 ML VIAL INJ ONE (22:37)
[2023-01-26] MEDS: IBUPROFEN 600 MG (MOTRIN) TAB PO SCH (23:45)
[2023-01-26] MEDS: WITCH HAZEL(TUCKS) 40 EA JAR TOP PRN (23:46)
[2023-01-26] MEDS: BENZOCAINE/MENTHOL (DERMOPLAST) 56 ML CAN TP PRN (23:46)
[2023-01-27] VITALS (7 sets, daily range): BP systolic 114–126; BP diastolic 56–75
[2023-01-27] MEDS ORDERED: ACETAMINOPHEN 500 MG TAB (TYLENOL) ONE (02:47)
[2023-01-27] MEDS: ACETAMINOPHEN 500 MG TAB (TYLENOL) PO PRN ×3 (03:06→18:39)
[2023-01-27 05:44] LABS: BASOPHILS % (AUTO) 0 % (0-10); EOSINOPHILS # (AUTO) 0.3 10^3/uL (0.0-0.3); EOSINOPHILS % (AUTO) 2 % (0-10); HEMATOCRIT 32 % (35-52); HEMOGLOBIN 11.2 g/dL (11.5-16.0); LYMPHOCYTES # (AUTO) 2.8 10^3/uL (1.0-4.0); LYMPHOCYTES % (AUTO) 22 % (12-44); MEAN CORPUSCULAR HEMOGLOBIN 33 pg (25-34); MEAN CORPUSCULAR HGB CONC 35 g/dL (32-36); MEAN CORPUSCULAR VOLUME 92 fL (80-99); MEAN PLATELET VOLUME 9.9 fL (9.0-12.2); MONOCYTES # (AUTO) 0.9 10^3/uL (0.0-1.0); MONOCYTES % (AUTO) 7 % (0-12); NEUTROPHILS # (AUTO) 8.9 10^3/uL (1.8-7.8); NEUTROPHILS % (AUTO) 69 % (42-75); PLATELET COUNT 193 10^3/uL (130-400); WHITE BLOOD COUNT 12.9 10^3/uL (4.3-11.0)
[2023-01-27] MEDS ORDERED: CATHETER FLUSH 10 ML SYR IV SCH (06:00)
--- NOTE | 2023-01-27 06:39 | Postpartum Progress Note ---
Note Note Day # 1 Subjective: Patient is without complaints. Ambulating, voiding. Tolerating a regular diet without nausea or vomiting. Normal lochia. Pain is well controlled with oral pain medications. Breast feeding. Objective: Vital Signs 01/27/23 03:13 Temp 36.6 Pulse 74 Resp 16 B/P (MAP) 114/56 (75) Pulse Ox 98 O2 Delivery Room Air Physical Exam: General - Alert and oriented, no apparent distress Heart - RRR, no murmur Lungs - CTAB Assessment: 27 yo G1 post- day # 1, status post spontaneous vaginal delivery. Recovering well, hemodynamically stable Plan: Routine care. Encourage breast feeding. Encourage ambulation. Ferrous sulfate supplementation. Plan for discharge tomorrow Vitals - Labs Vital Signs - I&O Vital Signs Date Time Temp Pulse Resp B/P (MAP) Pulse Ox O2 Delivery O2 Flow Rate FiO2 01/27/23 03:13 36.6 74 16 114/56 (75) 98 Room Air 01/27/23 00:06 36.8 96 16 126/66 (86) Room Air 01/26/23 21:50 95 16 128/77 (94) Room Air 01/26/23 21:49 37.0 01/26/23 21:47 101 16 126/82 (97) Room Air 01/26/23 21:06 116 18 137/79 (98) Room Air 01/26/23 20:51 36.5 99 16 143/100 (114) Room Air 01/26/23 20:36 80 16 121/96 (104) Room Air 01/26/23 20:20 80 16 111/56 (74) Room Air 01/26/23 20:06 74 16 108/56 (73) Room Air 01/26/23 19:51 76 16 113/71 (85) Room Air 01/26/23 19:40 77 16 108/58 (75) Room Air 01/26/23 19:21 36.7 81 16 129/60 (83) Room Air 01/26/23 19:00 16 Room Air 01/26/23 18:50 100 16 122/53 (76) Room Air 01/26/23 18:45 16 Room Air 01/26/23 18:35 78 16 130/76 (94) Room Air 01/26/23 18:30 16 Room Air 01/26/23 18:20 88 16 132/75 (94) Room Air 01/26/23 18:15 16 Room Air 01/26/23 18:05 79 16 124/80 (95) Room Air 01/26/23 18:00 16 Room Air 01/26/23 17:50 71 16 130/74 (92) Room Air 01/26/23 17:45 16 Room Air 01/26/23 17:35 76 16 128/71 (90) Room Air 01/26/23 17:30 16 Room Air 01/26/23 17:15 16 Room Air 01/26/23 17:00 16 Room Air 01/26/23 16:50 36.7 85 16 117/67 (84) Room Air 01/26/23 16:45 16 Room Air 01/26/23 16:35 93 16 117/68 (84) Room Air 01/26/23 16:30 16 Room Air 01/26/23 16:20 103 16 114/82 (93) Room Air 01/26/23 16:15 16 Room Air 01/26/23 16:05 95 16 120/57 (78) Room Air 01/26/23 16:00 16 Room Air 01/26/23 15:50 91 16 140/84 (102) Room Air 01/26/23 15:45 16 Room Air 01/26/23 15:35 82 16 121/56 (77) Room Air 01/26/23 15:30 16 Room Air 01/26/23 15:15 83 16 100 Room Air 01/26/23 15:00 71 16 100 Room Air 01/26/23 14:50 71 16 103/57 (72) 98 Room Air 01/26/23 14:45 Room Air 01/26/23 14:35 64 16 107/55 (72) 98 Room Air 01/26/23 14:30 Room Air 01/26/23 14:20 64 16 105/55 (72) 100 Room Air 01/26/23 14:15 Room Air 01/26/23 14:05 65 16 102/52 (69) 98 Room Air 01/26/23 14:00 Room Air 01/26/23 13:55 65 16 107/56 (73) 100 Room Air 01/26/23 13:45 Room Air 01/26/23 13:40 74 16 122/56 (78) 99 Room Air 01/26/23 13:30 16 Room Air 01/26/23 13:15 16 98 Room Air 01/26/23 13:05 72 16 131/57 (81) 99 Room Air 01/26/23 13:00 16 98 Room Air 01/26/23 12:45 68 16 119/58 (78) 98 Room Air 01/26/23 12:42 71 16 137/58 (84) 97 Room Air 01/26/23 12:36 70 16 129/64 (85) 98 Room Air 01/26/23 12:33 72 16 133/71 (91) 98 Room Air 01/26/23 12:30 88 16 136/68 (90) 98 Room Air 01/26/23 12:27 95 16 124/64 (84) 98 Room Air 01/26/23 12:15 16 Room Air 01/26/23 12:13 36.7 78 16 120/68 (85) 98 Room Air 01/26/23 12:05 75 16 119/59 (79) 98 Room Air 01/26/23 12:00 73 16 124/66 (85) 100 Room Air 01/26/23 11:50 89 16 133/92 (106) 92 Room Air 01/26/23 11:45 79 16 122/72 (89) 100 Room Air 01/26/23 11:30 16 Room Air 01/26/23 11:15 78 16 113/70 (84) Room Air 01/26/23 11:00 36.2 16 Room Air 01/26/23 10:45 16 Room Air 01/26/23 10:30 16 Room Air 01/26/23 10:15 16 Room Air 01/26/23 10:00 80 16 115/73 (87) Room Air 01/26/23 09:45 70 16 101/60 (74) Room Air 01/26/23 09:30 73 16 106/60 (75) Room Air 01/26/23 09:15 68 16 103/54 (70) Room Air 01/26/23 09:00 74 16 114/71 (85) Room Air 01/26/23 08:45 36.3 71 16 114/66 (82) 97 Room Air 01/26/23 07:15 104 16 112/78 (89) 97 Room Air I & O 01/27/23 07:00 Intake Total 4990 ml Output Total 900 ml Balance 4090 ml Labs Laboratory Tests 01/26/23 07:41: Sodium Level 136, Potassium Level 3.8, Chloride Level 106, Carbon Dioxide Level 22, Anion Gap 8, Blood Urea Nitrogen 3L, Creatinine 0.63, Estimat Glomerular Filtration Rate 125, BUN/Creatinine Ratio 5, Glucose Level 98, Uric Acid 4.7, Calcium Level 8.5, Corrected Calcium 9.5, Total Bilirubin 0.5, Aspartate Amino Transf (AST/SGOT) 13, Alanine Aminotransferase (ALT/SGPT) 9, Alkaline Phosphatase 156H, Lactate Dehydrogenase 176, Total Protein 5.7L, Albumin 2.8L 01/26/23 08:23: Urine Protein 8, Urine Creatinine 76, Urine Protein/Creatinine Ratio 0.11 01/27/23 05:10: White Blood Count 12.9H, Red Blood Count 3.44L, Hemoglobin 11.2#L, Hematocrit 32L, Mean Corpuscular Volume 92, Mean Corpuscular Hemoglobin 33, Mean Corpuscular Hemoglobin Concent 35, Red Cell Distribution Width 13.2, Platelet Count 193, Mean Platelet Volume 9.9, Immature Granulocyte % (Auto) 1, Neutrophils (%) (Auto) 69, Lymphocytes (%) (Auto) 22, Monocytes (%) (Auto) 7, Eosinophils (%) (Auto) 2, Basophils (%) (Auto) 0, Neutrophils # (Auto) 8.9H, Lymphocytes # (Auto) 2.8, Monocytes # (Auto) 0.9, Eosinophils # (Auto) 0.3, Basophils # (Auto) 0.0, Immature Granulocyte # (Auto) 0.1 PILY BILLINGSLEY MD Jan 27, 2023 06:39
[2023-01-27] MEDS: IBUPROFEN 600 MG (MOTRIN) TAB PO SCH ×4 (06:51→21:59)
--- NOTE | 2023-01-27 07:09 | Anesthesia-Regional Post-Op ---
Regional Patient Condition Mental Status: Alert, Oriented x3 Circulation: Same as Pre-Op Headache: Absent Sensation: Full Recovery Motor Block: Absent Post Op Complications Complications None Follow Up Care/Instructions Patient Instructions None needed. Anesthesia/Patient Condition Patient is doing well, no complaints, stable vital signs, no apparent adverse anesthesia problems. No complications reported per nursing. [place] [facility] [place]: Yes ELLIOTT FELDER CRNA Jan 27, 2023 07:09
[2023-01-27] MEDS: DOCUSATE SODIUM 100 MG (COLACE) CAP PO SCH ×2 (08:21→21:59)
[2023-01-27] MEDS: FERROUS SULF 325 MG (IRON) TAB PO SCH (08:21)
[2023-01-27] MEDS ORDERED: DOCU100C37 PO (21:34)
[2023-01-27] MEDS ORDERED: IBUP-844 PO (21:34)
[2023-01-27] MEDS ORDERED: FERR325T24 PO (21:34)
[2023-01-28] MEDS: WITCH HAZEL(TUCKS) 40 EA JAR TOP PRN ×2 (00:03→13:25)
[2023-01-28 04:45] VITALS: BP 119/73
[2023-01-28] MEDS: IBUPROFEN 600 MG (MOTRIN) TAB PO SCH ×2 (04:45→13:25)
[2023-01-28 09:20] VITALS: BP 118/58
[2023-01-28] MEDS: FERROUS SULF 325 MG (IRON) TAB PO SCH (09:33)
[2023-01-28] MEDS: ACETAMINOPHEN 500 MG TAB (TYLENOL) PO PRN (09:33)
[2023-01-28] MEDS: DOCUSATE SODIUM 100 MG (COLACE) CAP PO SCH (09:33)
--- NOTE | 2023-01-28 11:58 | Discharge Summary ---
Discharge Summary Hospital Course Hospital Course Date of Admission: Jan 25, 2023 at 11:10 Admission Diagnosis : Prolonged latent labor Gestational hypertension Third trimester [facility] Date of [facility]charge: 01/28/23 Discharge Diagnosis: Spontaneous vaginal delivery Gestational hypertension Asymptomatic postartum acute blood loss anemia Hospital Course: Pt admitted in prolonged latent labor, found to have multiple BP above 140 systolic. Preeclampsia labs neg. Labor augmented with pitocin and AROM and she had uncomplicated with bilateral labial laceration repair. course uncomplicated. Labs and Pending Lab Test: Home Meds Active Docusate Sodium 100 Mg Capsule 100 Mg PO BID PRN Ibu (Ibuprofen) 600 Mg Tablet 600 Mg PO Q6HR PRN Ferosul (Ferrous Sulfate) 325 Mg (65 Mg Iron) Tablet 325 Mg PO DAILY@0700 Reported Tablet ( Vit/Iron Fumarate/FA) 27 Mg Iron-800 Mcg Tablet 1 Each PO DAILY Assessment/Pt DC Instructions Follow up with Dr. Malcolm in 6 weeks. Discharge Diet: No Restrictions Activity as Tolerated: Yes (avoid strenuous activity x 6 weeks) Discharge Physical Examination Allergies: Coded Allergies: No Known Drug Allergies (Unverified , 06/27/14) General Appearance: No Apparent Distress, WD/WN Respiratory: Lungs Clear, Normal Breath Sounds Cardiovascular: Regular Rate, Rhythm, No Murmur Skin: Warm/Dry Neurologic/Psychiatric: Alert, Normal Mood/Affect PILY BILLINGSLEY MD Jan 28, 2023 11:58
[2023-01-28 13:00] VITALS: BP 115/66
[2023-01-28] MEDS: BENZOCAINE/MENTHOL (DERMOPLAST) 56 ML CAN TP PRN (13:26)
[2023-01-28 18:20] VITALS: BP 115/66
== END 2023-01-28 18:20 | disposition home or self-care (01) | DRG 806 ==
LOC: LDRP 06:42 → WSo 06:42 → LDRP 11:10
PROVIDERS: ADMIT Family Medicine; ATTEND Family Medicine
PROC: 10E0XZZ Delivery of Products of Conception, External Approach (ICD-10-PCS; principal; 2023-01-26)
PROC: 10907ZC Drainage of Amniotic Fluid, Therapeutic from Products of Conception, Via Natural or Artificial Opening (ICD-10-PCS; 2023-01-26)
PROC: 0UQMXZZ Repair Vulva, External Approach (ICD-10-PCS; 2023-01-26)
DX: O99.824 Streptococcus B carrier state complicating childbirth (principal); D62 Acute posthemorrhagic anemia; Z37.0 Single live birth; Z3A.38 38 weeks gestation of pregnancy; O70.0 First degree perineal laceration during delivery; O13.4 Gestational [pregnancy-induced] hypertension without significant proteinuria, complicating childbirth; O90.81 Anemia of the puerperium
CPT/HCPCS: 36415; 80053; 80306; 81000; 82570; 83615; 84156; 84550; 85025; 86780; 86850; 86900; 86901